=== PATIENT | male | born 1955 | race Caucasian/White ===

== ENCOUNTER 2016-11-11 10:18 | Inpatient (IN) ==
[2016-11-11] MEDS ORDERED: ONDANSETRON 4 MG/2 ML VIAL IV PRN (10:21)
[2016-11-11] MEDS ORDERED: PANTOPRAZOLE 40 MG VIAL IV SCH ×2 (10:30→21:00)
--- NOTE | 2016-11-11 10:56 | Pulmonology History & Physical ---
History of Present Illness Chief complaint: fatigue, abd pain, lightheaded, hypotension History of present illness: [facility] acting as scribe for Dr. Brett Hummel. Mr. Christianson is a 61 year old /White male seen today in the office for complaints of fatigue, weakness, intermittent hot flashes and sweating, abdominal pain, lightheadedness and rash on both arms and legs. He went to the emergency department on October 11, 2016 for these symptoms and was worried his blood counts were low he has history of severe anemia. H&H was stable but he was dehydrated at this time given IV hydration and felt ok d/c'd from ER. He called our office about 1 week ago c/o abdominal pain, weakness, fatigue, and sweats thought he had a stomach virus he was offered walk in appointment at this time but declined. Today presented for persistent symptoms with acute worsening of fatigue weakness and lightheadedness. Abdominal pain is intermittent worse with empty stomach and improves with eating. He has not vomited or had diarrhea but he is nauseated. BP in office noted to be 96/68 patient was feeling lightheaded, dizzy, and fatigued. He also has a rash to both arms and hands with open areas to the hands and dry plaque appearance to the hands. Red and pruritic worsens with heat. Due to the severity of his symptoms and the length of presence of his symptoms along with his PMHx decision was made to admit to inpatient for further evaluation and treatment. All other ROS noncontributory Allergies: None Home medications: See list Past medical history: [facility] 07/19/16 through 07/22/16 for left submandibular/submental cellulitis secondary to carious tooth. 03/27/16 through 03/12/16 under the care of Dr. Hummel. During that admission he was treated for acute on chronic anemia secondary to Dieulafoy's lesion which was injected with epinephrine and hemoclipped by Dr. Cao. [facility] through 12/04/14 under the care of Dr. Hummel. During that admission he was treated for nausea, vomiting, and dehydration. He also had acute on chronic anemia and required blood transfusion. [facility] 11/18/13 through for acute systolic CHF, an acute cardiomyopathy with an EF of 20%, ventricular tachycardia, GERD, and acute erosive gastritis and mild superficial gastritis. His history is also notable for cardiomyopathy and HTN. He is followed by Dr. Murcia. He also has chronic rhinitis. Past surgical history: He had Incision & drainage Left submandibular abscess and surgical extraction carious tooth #[address] Jason Garcia. He has had a previous c-scope by Dr. Cao. He has had a knee scope by Dr. Villarreal. He has had left shoulder surgery. He has an ICD. Family history: Non-contributory. Social history: The patient is . She is very supportive. 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 He denies alcohol or tobacco. Labs done in the office 11/11/16 Creatinine 1.48/BUN 22 CA 8.4 Potassium 4.5. WBC 6200 63.4% segs 18.1% lymphs 8.1% eosinophils H&H 12.7/38.7. EKG pending. CXR pending. Home Medications Medication Instructions Recorded Confirmed Type PARoxetine HCl [Paroxetine HCl] 40 mg PO DAILY 06/02/15 11/11/16 History Valsartan [Diovan] 80 mg PO DAILY 06/02/15 11/11/16 History Ferrous Sulfate Tab [Feosol 325 mg PO DAILY #30 tablet 04/01/16 11/11/16 Rx Original Tab] Carvedilol [Coreg] 6.25 mg PO DAILY 11/11/16 11/11/16 History Furosemide Tab [Lasix Tab] 40 mg PO DAILY 11/11/16 11/11/16 History Allergies Allergy/AdvReac Type Severity Reaction Status Date / Time No Known Allergies Allergy Verified 11/11/16 11:52 Medical,Surgical,& Family Hx - Medical History Cardio: History of: CHF, Hypertension, Pacemaker No history of: CAD, [place] Psychological: History of: Anxiety Disorders Neurology: No history of: Seizures Endocrine: No history of: Diabetes Mellitus (IDDM), Diabetes Mellitus (NIDDM) Rheumatology: History of;: Gout, Rheumatoid Arthritis Respiratory: No history of: Asthma, COPD, Pneumonia Renal: No history of: Renal Failure, Renal Problems Gastrointestinal: History of: GERD (past histroy) No history of: Gastrointestinal Bleed, Liver Problems Hematology: History of: Anemia (past history) - Surgical History Cardiac Surgeries: Sugical HX of: Cardiac Catheterization, Internal Defibrillator (PM/DF) Neurologic Surgeries: Patient denies: Neurologic Surgery Abdominal Surgeries: Surgical HX of: Colonoscopy, EGD Orthopedic Surgeries: Surgical HX of;: Implanted Devices (pacemaker), Orthopedic Surgery (left shoulder surgery 2011) - Family History Family History: Reports;: Family Diabetes (brother), Family Heart Disease ( father, mother), Family Hypertension (father), Family Stroke (mother) - Social History Smoking Status: Never smoker Results - Labs Lab Results: I have reviewed the past 24 hour labs Exam ([facility]) H&P - Constitutional Exam: Psych: Oriented x 3; a pleasant and cooperative patient who is acutely and chronically ill-appearing. HEENT: Pupils, irises, sclera, conjunctiva, and eyelids are normal. The face is symmetrical without rash. Neck: Symmetrical. Thyroid was not palpated. Lymphatics: No cervical or supraclavicular adenopathy Chest: Symmetrical without wheeze or congestion. CV: Regularly irregular with grade 1/6 FAUSTINO that does not radiate. Arterial: Carotids with a fair upstroke. There is no bruit. Upper extremity pulses are palpable. Lower extremity pulse are palpable. Venous: Exam of the neck, upper, and lower extremities is normal Abd: Generalized TTP to light palpation. No appreciable organomegaly, masses, or bruit; Bowel sounds are positive x 4; The aorta was not palpated. /Rectal: Deferred Extremities: No clubbing, cyanosis, edema, or obvious DVT Skin: See HEENT and Neck. No cancerous or infectious lesions of the remaining exposed, examined skin; Red dry irritated appearing rash to both upper extremities, dry silver/white appearing plaques on both hands with cracks through the lesions not infectious appearing. M/S: Age appropriate loss of the normal curvature of the cervical, thoracic, and lumbar spine Neurological: Cranial nerves are intact, Long tract motor function is intact; Sensory exam was not done; gait was not tested. The remainder of the exam was noncontributory. Impression: #1 Acute dehydration with elevation of creatinine #2 Anemia, chronic decreased of H&H #3 Fatigue present for greater than 4 weeks #4 Lightheadedness and dizziness #5 Hypotension, symptomatic #6 Rash on both arms #7 Cardiomyopathy, ICD in place, followed by Dr. Murcia #8 See past history. Plan #1 Admit to inpatient for further evaluation and treatment #2 Consult GI for evaluation of abdominal pain r/o penetrating ulcer, cholecystitis #3 IV Hydration, XR and labs #4 See orders.
[2016-11-11] MEDS: SUCRALFATE 1 GM TABLET PO SCH ×3 (11:29→21:24)
[2016-11-11] MEDS: DEXTROSE 5% NACL 0.45% 1,000 ML IV SCH ×2 (11:32→22:50)
[2016-11-11 12:44] LABS: Thyroid Stimulating Hormone 0.932 uIU/ml (0.358-3.74)
--- NOTE | 2016-11-11 13:26 | Gastrointestinal Consult Note ---
Assessment and Plan (1) Periumbilical pain Status: Acute Assessment and plan: I suspect the patient is having this particular pain from use of iron underlying constipation. Rule out some MiraLAX to see if this helps out with the sensation. He only goes to the bathroom once every other day in his current condition. Like to hold off on repeating colonoscopy for the present time. Current Visit: Yes (2) Acute posthemorrhagic anemia Status: Acute Assessment and plan: This patient's hematocrit approximately 1 month ago was noted to be 37%. We are checking his CBC now to see if this is dropped significantly in the interim. He has not noticed any bright red blood or black tarry bowel movements unlike previous admissions. His not taking any proton pump inhibitors at home, we'll check his CBC and likely schedule him for upper endoscopy tomorrow to see if any further bleeding from the GI tract can be identified. We will reexamine the site of the previous ulcer as well as the site of the previous Dieulafoy's lesion to see if these are oozing any blood. Risks and benefits of the procedure were discussed with the patient and include but are not limited to: Bleeding, infection, perforation, cardiac and pulmonary compromise. Current Visit: Yes (3) Epigastric abdominal pain Status: Acute Assessment and plan: This may be due to a combination of prior gastritis and ulcer disease the pain is certainly low-grade at this particular point. There may be some component of GI upset with the iron that he's been exposed to his well. We'll continue to watch his he is hydrated and continues to eat. Nothing by mouth after midnight for the above tests. Further recommendations post upper endoscopy repeat tomorrow. Current Visit: No (4) Erosive gastritis Status: Acute Assessment and plan: As mentioned above this may be secondary to erosive gastritis-- this is been found to be Helicobacter pylori negative past. We will continue monitoring for melena but the patient is being started on Protonix twice daily at this point. Current Visit: No History of Present Illness Chief complaint: prior history of anemia, epigastric and periumbilical pain, prior ulcer History of present illness: Mr. Christianson is a 61 year old male who is well-known to me from multiple admissions in the past. I'm being consulted due to underlying low epigastric/ periumbilical pain and a prior history of ulcers in the past. Unlike previous admissions patient states that he has not had any black stools or bright red blood per rectum, he states that he is on no Protonix 40 mg (last admission was written for twice a day). He has been taking iron on a routine basis and this gives him some gastric upset. He has noticed a hard stools but these tend to be green not black, be due to some some cramping. The patient has had some nausea without vomiting. The patient had blood work done while in the hospital as recently as 10/11/16 which time his hematocrit was 37.8 with a hemoglobin of 12.0. The patient's last upper endoscopy was done by me on 04/01/16 and was significant for a set of low-grade erosions noted in the antrum but also bleeding vessel/Dieulafoy's lesion noted at the duodenal C-sweep was very difficult to get to. This responded only after 10 mL injected epinephrine and hemoclips to staunch the bleeding. He has been on Protonix twice a day since that time. Overall he has done fairly well but has recently required tooth extraction for carious teeth/cellulitis. He does not take anything for the iron induce constipation, we will likely add some MiraLAX for this. Note this patient is previously undergone colonoscopy in the past. The patient has had prior colonoscopy but not capsule endoscopy. His hematocrit last admission was down to 28% a hematocrit for this visit is still pending. He denies NSAID use recently. The patient feels that he might have psoriasis on his hands bilaterally. Home Medications Medication Instructions Recorded Confirmed Type PARoxetine HCl [Paroxetine HCl] 40 mg PO DAILY 06/02/15 11/11/16 History Valsartan [Diovan] 80 mg PO DAILY 06/02/15 11/11/16 History Ferrous Sulfate Tab [Feosol 325 mg PO DAILY #30 tablet 04/01/16 11/11/16 Rx Original Tab] Carvedilol [Coreg] 6.25 mg PO DAILY 11/11/16 11/11/16 History Furosemide Tab [Lasix Tab] 40 mg PO DAILY 11/11/16 11/11/16 History Allergies Allergy/AdvReac Type Severity Reaction Status Date / Time No Known Allergies Allergy Verified 11/11/16 11:52 Medical,Surgical,& Family Hx - Medical History Cardio: History of: CHF, Hypertension, Pacemaker No history of: CAD, [place] Psychological: History of: Anxiety Disorders Neurology: No history of: Seizures Endocrine: No history of: Diabetes Mellitus (IDDM), Diabetes Mellitus (NIDDM) Rheumatology: History of;: Gout, Rheumatoid Arthritis Respiratory: No history of: Asthma, COPD, Pneumonia Renal: No history of: Renal Failure, Renal Problems Gastrointestinal: History of: GERD (past histroy) No history of: Gastrointestinal Bleed, Liver Problems Hematology: History of: Anemia (past history) - Surgical History Cardiac Surgeries: Sugical HX of: Cardiac Catheterization, Internal Defibrillator (PM/DF) Neurologic Surgeries: Patient denies: Neurologic Surgery Abdominal Surgeries: Surgical HX of: Colonoscopy, EGD Orthopedic Surgeries: Surgical HX of;: Implanted Devices (pacemaker), Orthopedic Surgery (left shoulder surgery 2011) - Family History Family History: Reports;: Family Diabetes (brother), Family Heart Disease ( father, mother), Family Hypertension (father), Family Stroke (mother) - Social History Smoking Status: Never smoker Type of Drug Use: None Review of systems: Constitutional: Denies fever, chills, and vomiting-- he is having moderate nausea Eyes: Denies dry eyes, and scleral icterus HENT: Denies headaches Cardiovascular: Denies acute chest pain and claudication Respiratory: Denies shortness of breath, wheezing, and difficulty breathing, denies cough Gastrointestinal: As noted in the HPI Genitourinary: Denies dysuria and hematuria Neurologic: Denies vision loss, and loss of sensation Musculoskeletal: Denies joint swelling, does have some joint stiffness, and muscular weakness Psychiatric: Denies depression and jean symptoms Heme-Lymph: Denies easy bruising, lymph node enlargement or tenderness, night sweats, excessive bleeding Allergies-immunologic: Denies pruritus and rhinorrhea Exam - Constitutional Exam: Constitutional: Well-developed, well-nourished, alert, and in no acute distress Head and face: Head: Normocephalic atraumatic-- the patient does have what appears to be folliculitis involving his forehead. Eyes: Conjunctiva without injection, no gross scleral icterus, pupils equal and round bilaterally Ears: Intact to conversation in both ears Nose: External appearance is normal, nares patent Mouth: Oral mucous membranes moist without erythema dentition noted to be without erosion Neck: Normal appearance, no masses or tenderness, trachea midline Thyroid: Gland midline and appropriate size for age Respiratory: Normal respiratory effort, clear to auscultation without wheezes, rhonchi or rales Cardiovascular: Regular rate and rhythm, normal S1, S2, the exam is without rubs, murmurs or gallops. Gastrointestinal: Nontender to palpation, normal active bowel sounds, tone normal without rigidity or guarding, no masses present, no hepatomegaly, no spleen tip felt. No rectal exam obtained. Lymphatic: Neck without adenopathy, axilla without lymphadenopathy present Musculoskeletal: Right and left lower extremities without evidence of edema Skin and subcutaneous tissue: No rashes or ulcerations noted, normal skin turgor, digits and nails without clubbing/cyanosis/deformities-- deep fissuring noted over the patient's knuckles bilaterally consistent with dry callouses which have fissured. Neurologic: The patient is grossly oriented to person place and time, cranial nerves show tongue movements are normal with normal tongue extrusion midline, light touch sensation is intact. Psychiatric: No hallucinations or delusions are present, does not appear depressed
--- NOTE | 2016-11-11 14:20 | EKG Report ---
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
--- NOTE | 2016-11-11 15:46 | XRay Report ---
XR chest 2V Indication: SOB Comparison: Chest x-ray dated October 11, 2016 Technique: Frontal and lateral views of the chest Findings: Continued mild cardiomegaly. Cardiac pacemaker apparatus again noted. Prominent hiatal hernia noted. Chronic changes of the lungs without focal consolidation, pleural effusion, or pneumothorax. Osseous and surrounding soft tissue structures appear grossly unchanged. Left clavicular hardware and pacemaker apparatus again noted. IMPRESSION: Continued mild cardiomegaly without gurinder pulmonary edema. Hiatal hernia. PROCEDURE INTERPRETED AT [facility] DEPARTMENT OF RADIOLOGY Final Report Signed by: Dr Denton Workman
--- NOTE | 2016-11-11 15:48 | XRay Report ---
XR KUB Indication: Generalized abdominal pain Comparison: Abdominal x-ray dated December 03, 2014 Technique: Frontal views of the abdomen Findings: Hiatal hernia. Nonspecific nonobstructive bowel gas pattern. Presumed pelvic phleboliths. Osseous and surrounding soft tissue structures appear grossly unchanged. IMPRESSION: No acute abnormality demonstrated. Hiatal hernia. PROCEDURE INTERPRETED AT [facility] DEPARTMENT OF RADIOLOGY Final Report Signed by: Dr Denton Workman
[2016-11-11 16:17] LABS: Apearance,Urine CLEAR (Clear); Bilirubin,Urine Negative (Negative); Blood, Urine Negative (Negative); Glucose,Urine (UA) Negative (Negative); Ketones,Urine Negative (Negative); Mucus,Urine Occasional /LPF (Occasional); Nitrite,Urine Negative (Negative); Protein,Urine Negative; RBC,Urine 1 /HPF (0-4); Urine Color Yellow (Yellow); Urine Specific Gravity 1.018 (1.001-1.035); Urine Urobilinogen < 2.0 EU/DL (0.2-1.0); WBC,Urine 1 /HPF (0-6)
--- NOTE | 2016-11-11 17:14 | Cardiology Consult Note ---
Assessment and Plan - Time spent with patient Time spent with patient: Greater than 30 minutes (1) New onset atrial fibrillation Status: Acute Assessment and plan: Await labs that are pending we have a TSH and free T4 that is it. The patient is to have upper endoscopy in the morning will initiate anticoagulation if there is no contraindication after this procedure. Continue his beta lynn for now his rate is controlled. Serial EKGs and placed on the lead pony rider Current Visit: Yes (2) Iron deficiency anemia Status: Chronic Current Visit: No Qualifiers: Iron deficiency anemia type: chronic blood loss Qualified Code(s): D50.0 - Iron deficiency anemia secondary to blood loss (chronic) (3) Nonischemic cardiomyopathy Status: Acute Assessment and plan: [place] [employer] class II with history of ventricular tachycardia status post ICD for secondary prophylaxis Current Visit: No (4) HTN (hypertension) Status: Chronic Current Visit: No Qualifiers: Hypertension type: essential hypertension Qualified Code(s): I10 - Essential (primary) hypertension History of Present Illness - Data of Consult Patient: new to practice Consult date: 11/11/16 Requesting Physician: Estefania Arora - Consult Narrative Reason for consult: Afib History of present illness: Mr. Christianson is a 61 [address] old male patient Dr[address] Anthony Murcia who has nonischemic dilated cardiomyopathy and status post single-chamber ICD is admitted with volume contraction and abdominal discomfort. We were ask to see because a routine ECG shows atrial fibrillation. The patient is unaware of any history of cardiac dysrhythmia. He is now admitted to the fifth floor I came to see the patient. He was in x-ray several hours later we were able to see him in his room. He denies any palpitations syncope or near-syncope chest pain orthopnea or lower extremity edema. He has [place] [employer] class II heart failure. Single-chamber ICD that is never fired. CC: Brett Hummel MD - Home Medications and Allergies Home Medications: Home Medications Medication Instructions Recorded Confirmed Type PARoxetine HCl [Paroxetine HCl] 40 mg PO DAILY 06/02/15 11/11/16 History Valsartan [Diovan] 80 mg PO DAILY 06/02/15 11/11/16 History Ferrous Sulfate Tab [Feosol 325 mg PO DAILY #30 tablet 04/01/16 11/11/16 Rx Original Tab] Carvedilol [Coreg] 6.25 mg PO DAILY 11/11/16 11/11/16 History Furosemide Tab [Lasix Tab] 40 mg PO DAILY 11/11/16 11/11/16 History Allergies/Adverse Reactions: Allergies Allergy/AdvReac Type Severity Reaction Status Date / Time No Known Allergies Allergy Verified 11/11/16 11:52 - Constitutional Constitutional: Absent: anorexia, chills - EENT Eyes: Absent: blurry vision, diplopia Nose, mouth and throat: Absent: dysphagia, epistaxis, neck pain, throat swelling , tongue swelling - Cardiovascular Cardiovascular: Present: lightheadedness. Absent: chest pain at rest, chest pain with activity, claudication, diaphoresis, dyspnea, dyspnea on exertion, edema, orthopnea, palpitations, PND - Respiratory Respiratory: Absent: cough, dyspnea on exertion - Gastrointestinal Gastrointestinal: Present: abdominal pain. Absent: bloating, constipation, dyspepsia, dysphagia, heartburn - Genitourinary Genitourinary: Absent: difficulty urinating, hematuria - Musculoskeletal Musculoskeletal: Absent: arthralgias, joint swelling - Neurological Neurological: Absent: abnormal gait, radicular pain - Psychiatric Psychiatric: Absent: depression, panic attacks - Endocrine Endocrine: Absent: cold intolerance, heat intolerance Medical,Surgical,& Family Hx - Medical History Cardio: History of: Cardiac Dysrhythmia (Vtach in past), CHF (systolic and diastolic heart failure [place] [employer] class II no), Hypertension, Cardiovascular Problems (ICD, single-chamber) No history of: CAD, [place] Psychological: History of: Anxiety Disorders Neurology: No history of: Seizures Endocrine: No history of: Diabetes Mellitus (IDDM), Diabetes Mellitus (NIDDM) Rheumatology: History of;: Gout, Rheumatoid Arthritis Respiratory: No history of: Asthma, COPD, Pneumonia Renal: No history of: Renal Failure, Renal Problems Gastrointestinal: History of: GERD (past histroy), GI Problems (history of UGI bleed) No history of: Gastrointestinal Bleed, Liver Problems Hematology: History of: Anemia (past history) - Surgical History Cardiac Surgeries: Sugical HX of: Cardiac Catheterization, Internal Defibrillator (ICD, single chamber for secondary prophylaxis) Neurologic Surgeries: Patient denies: Neurologic Surgery Abdominal Surgeries: Surgical HX of: Colonoscopy, EGD Orthopedic Surgeries: Surgical HX of;: Implanted Devices (pacemaker), Orthopedic Surgery (left shoulder surgery 2011) - Family History Family History: Reports;: Family Diabetes (brother), Family Heart Disease ( father, mother), Family Hypertension (father), Family Stroke (mother) - Social History Smoking Status: Never smoker Type of Drug Use: None Marital Status: Lives With:: Spouse Functional capacity: independent ambulation Physical Examination General: Present: Appears Well Neck: Present: Supple Neck Cardiac: Present: Reg Rate and Rhythm, S1/S2, S4 Lungs: Present: Normal Exam Neuro: Present: Cranial Nerve 2-12 Intact, Motor Function Intact Abdomen: Present: Soft, Active Bowel Sounds Skin: Present: Clear, Rash Gait: Present: Normal Gait Extremities: Absent: Edema Result/EKG - Labs Labs: Laboratory Results - last 24 hr 11/11/16 11/11/16 11/11/16 11:50 11:50 15:15 Magnesium 2.0 Free T4 1.16 TSH 3rd Generation 0.932 Urine Color Yellow Urine Appearance Clear Urine pH 5.0 Ur Specific Chavies 1.018 Urine Protein Negative Urine Glucose (UA) Negative Urine Ketones Negative Urine Blood Negative Urine Nitrate Negative Urine Bilirubin Negative Urine Urobilinogen < 2.0 H Urine Leukocytes Negative Urine RBC 1 Urine WBC 1 Urine Mucus Occasional Ur Culture Indicated? Not indicated - Impressions Impressions: Vital signs Temp 97.6 RR 17 BP 144/82 98% - EKG EKG results: interpreted by me EKG shows: atrial fibrillation
[2016-11-11 18:04] LABS: Basophils % 0.4 % (0.0-0.8); Eosinophils # 0.5 10*3/uL (0.0-0.87); Eosinophils % 10.7 % (0.00-10.9); Hematocrit 38.4 VOL% (42.0-52.0); Immature Granulocytes % 0.4 %; Immature Granulocytes Absolute 0.02 #; Lymphocytes # 1.1 10*3/uL (1.4-4.0); Lymphocytes % 23.8 % (21.2-54.2); Mean Corpuscular HGB Conc 31.3 GM/DL (32-36); Mean Corpuscular Hemoglobin 26 PG (27-34); Mean Corpuscular Volume 84.2 FL (87-102); Mean Platelet Volume 8.6 FL (9.6-12.0); Monocytes # 0.5 10*3/uL (0.11-0.8); Monocytes % 11.4 % (1.7-12.7); Neutrophils # 2.5 10*3/uL (1.4-7.4); Neutrophils % 53.3 % (38.7-73.9); Platelet Count 160 T/CUMM (130-400); Red Blood Count 4.56 MC/CUMM (3.8-5.5); Red Cell Distribution Width 13.9 % (9.3-17.3); White Blood Count 4.8 T/CUMM (4-12)
[2016-11-11 18:34] LABS: Calcium 8.4 MG/DL (8.5-10.1); Magnesium 2.2 MG/DL (1.8-2.4); Potassium 4.4 MMOL/L (3.5-5.1); Thyroid Stimulating Hormone 1.01 uIU/ml (0.358-3.74)
--- NOTE | 2016-11-11 19:34 | Pulmonology Progress Note ---
Pulmonary - PN: Subj Interval history: This patient is stable. His abdominal pain is better he has been found to have new onset of atrial fib. This probably explains a good bit of his weakness H&H is stable. Renal function looks good. The patient's for E scope tomorrow. Appreciate Dr. Thakur's cardiology consultation. Exam (Progress Note) - Constitutional Vitals: Period Temp Pulse Resp BP Sys/Martins Pulse Ox Last 24 Hr 97.6 F 84 17 144/82 98 Results - Labs CBC & BMP: 11/11/16 17:14 11/11/16 17:14
[2016-11-11] MEDS: POLYETHYLENE GLYCOL POWDER 17 GM PACK PO SCH (21:24)
[2016-11-12 06:00] LABS: Basophils % 0.4 % (0.0-0.8); Eosinophils # 0.5 10*3/uL (0.0-0.87); Eosinophils % 9.7 % (0.00-10.9); Hematocrit 37.6 VOL% (42.0-52.0); Hemoglobin 11.8 GM/DL (14.0-18.0); Immature Granulocytes % 0.2 %; Immature Granulocytes Absolute 0.01 #; Lymphocytes # 1.2 10*3/uL (1.4-4.0); Lymphocytes % 23.8 % (21.2-54.2); Mean Corpuscular HGB Conc 31.4 GM/DL (32-36); Mean Corpuscular Hemoglobin 27 PG (27-34); Mean Corpuscular Volume 84.5 FL (87-102); Mean Platelet Volume 8.8 FL (9.6-12.0); Monocytes # 0.5 10*3/uL (0.11-0.8); Monocytes % 9.5 % (1.7-12.7); Neutrophils # 2.8 10*3/uL (1.4-7.4); Neutrophils % 56.4 % (38.7-73.9); Platelet Count 166 T/CUMM (130-400); Red Blood Count 4.45 MC/CUMM (3.8-5.5); Red Cell Distribution Width 13.7 % (9.3-17.3)
[2016-11-12 06:37] LABS: Calcium 8.2 MG/DL (8.5-10.1); Magnesium 2.3 MG/DL (1.8-2.4); Osmolality,Calculated 295.4 MOS/KG (273-304); Potassium 5.4 MMOL/L (3.5-5.1)
[2016-11-12] MEDS ORDERED: PROPOFOL 200 MG/20 ML VIAL IV ONE (08:00)
[2016-11-12] MEDS ORDERED: LIDOCAINE 1% 5 ML VIAL ONE (08:00)
[2016-11-12] MEDS: SUCRALFATE 1 GM TABLET PO SCH ×4 (08:22→20:53)
--- NOTE | 2016-11-12 08:23 | Operative Note ---
Date of procedure: 11/12/16 Pre-op diagnosis: low epigastric/periumbilical pain, improved on Protonix, HX Post-op diagnosis: other (This patient is a very large hiatal hernia which could certainly be adding to food retention and his gastritis, he has moderately severe diffuse/linear gastritis and some duodenitis in addition, he would likely benefit from routine PPI use with Protonix.) Procedure: PROCEDURE: Esophagogastroduodenoscopy (EGD) REFERRING PHYSICIAN: Brett Hummel M.D. INDICATIONS: Low epigastric pain/periumbilical pain The prior H&P was reviewed and interrim changes are as noted: No change from GI consultation yesterday ENDOSCOPIST: Aleks Cao MD ENDOSCOPE: Olympus Video 100 System upper endoscope ASA CLASS: 3 EXAM: CV: regular rate and rhythm Respiratory: Clear without wheezes Abdominal: active bowel sounds MEDICATION: Per nursing anesthesia protocol, see their notes PROCEDURE: After discussion of the potential risks and benefits of upper endoscopy, the informed consent was obtained. The patient was then placed in the left lateral decubitus position where sedation was achieved as noted above. Esophageal intubation was performed without difficulty, and the endoscope was advanced through the esophagus, stomach and duodenum. A slow withdrawal was then performed with retroflexion in the stomach for careful inspection of the incisura angularis, fundus and cardia. The scope was then returned to a neutral position and withdrawn through the esophagus. The patient tolerated the procedure well and without complication. BIOPSIES: Not obtained PHOTOGRAPHS: Obtained FINDINGS: Hypopharynx and Larynx: Normal Esohagoscopy Upper and middle thirds: Normal Lower third normal Esophogastric junctions: Normal Gastroscopy: Cardia/Fundus: Very large hiatal hernia noted with a slight paraesophageal component, this was 10 cm in size with mild erythema Body: Diffuse moderate nonerosive gastritis Antrum and pylorus diffuse moderate nonerosive gastritis with a slight linear component Duodenoscopy: Bulb mild duodenitis Second and third portions: Mild duodenitis IMPRESSION: This patient is a very large hiatal hernia which could certainly be adding to food retention and his gastritis, he has moderately severe diffuse/ linear gastritis and some duodenitis in addition, he would likely benefit from routine PPI use with Protonix. RECOMMENDATIONS: Follow up for biopsy results in 1-2 weeks by phone [phone] Continue anti-gastroesophageal reflux measures (avoid carbonated and acidic beverages, avoid eating within 2 hours of bedtime, avoid tight fitting clothing , and elevate the front bed posts 6 inches prior to sleeping. This patient will likely need Protonix at least once daily going forward. The pain in his upper umbilical area may be referred from the stomach, but may also be intestinal pain associated with his colon. High fiber diet also suggested. Aleks Cao MD COPY TO: Brett Hummel M.D. Anesthesia: MAC Surgeon / Physician: Aleks Cao Estimated blood loss: minimal Specimens: none sent Condition: stable Disposition: post procedure unit (G.I. Suite) Results - Labs CBC & BMP: 11/12/16 04:42 11/12/16 04:42 Discharge Plan - Discharge Medications No Action Valsartan [Diovan] 80 mg PO DAILY PARoxetine HCl [Paroxetine HCl] 40 mg PO DAILY Ferrous Sulfate Tab [Feosol Original Tab] 325 mg PO DAILY #30 tablet Furosemide Tab [Lasix Tab] 40 mg PO DAILY Carvedilol [Coreg] 6.25 mg PO DAILY - Follow Up or Referral - Forms/Instructions
--- NOTE | 2016-11-12 08:25 | Anesthesia ---
Anesthesia Post OP - Post Ansesthetic Evaluation Patient seen in post op: Yes Resp: within normal limits CV: within normal limits Mental: within normal limits Temp: within normal limits Iahs-Ef-Cqzpupaxa: within normal limits Nausea and Vomiting: within normal limits Pain: within normal limits
--- NOTE | 2016-11-12 08:27 | Gastrointestinal Progress Note ---
Assessment and Plan (1) Periumbilical pain Status: Acute Assessment and plan: I suspect the patient is having this particular pain from use of iron with underlying constipation. Rule out some MiraLAX to see if this helps out with the sensation. He only goes to the bathroom once every other day in his current condition. No need for colonoscopy. Current Visit: Yes (2) Acute posthemorrhagic anemia Status: Acute Assessment and plan: Review of the patient's hematocrit demonstrates a very low-grade anemia, this really has not changed much from his baseline, despite the discontinuation of Protonix. I do note that the patient is been on iron supplementation and so ongoing losses are likely present, at least partially due to the gastritis in the stomach. Current Visit: Yes (3) Epigastric abdominal pain Status: Acute Assessment and plan: The upper endoscopy done today on 11/12/16 demonstrates moderate linear and on the linear gastritis but no gurinder erosions. No repeat biopsies were obtained. The patient feels better on Protonix and this will be continued as an outpatient daily. For my standpoint he can certainly be discharged. Current Visit: No (4) Erosive gastritis Status: Acute Assessment and plan: As mentioned above this may be secondary to erosive gastritis-- this is been found to be Helicobacter pylori negative past. We will continue monitoring for melena but the patient is being started on Protonix twice daily at this point. 11/12/16-- mild/moderate linear nonbleeding linear gastritis, possibly a source of some the patient's pain, biopsies were not re-obtained. Due to the size of his hiatal hernia he will need Protonix on a daily basis most likely. Hopefully with use of Protonix we can also curtail his iron use over time. I have left a prescription of Protonix in the front of his chart for use upon discharge. For my standpoint, he can be released at this time. Current Visit: No Gastroenterology - PN: Subj Interval history: Patient feels better on Protonix which was restarted. The epigastric/high periumbilical pain on the left has receded to a very large extent. Upper endoscopy today demonstrated the following: This patient is a very large hiatal hernia which could certainly be adding to food retention and his gastritis, he has moderately severe diffuse/linear gastritis and some duodenitis in addition. Exam (Progress Note) - Constitutional Vitals: Period Temp Pulse Resp BP Sys/Martins Pulse Ox Last 24 Hr 96.3 F-97.7 F 51-98 16-20 141-156/82-102 96-98 General appearance: no acute distress - Head Head exam: Present: normal inspection, normocephalic - Eye Eye exam: Present: EOMI - Respiratory Respiratory exam: Present: clear to auscultation bilaterally - Cardiovascular Cardiovascular exam: Present: regular rate and rhythm - GI/Abdominal GI/Abdominal exam: Present: normal bowel sounds, soft. Absent: distended, tenderness, rebound - Neurological Exam Neurological exam: Present: alert, oriented X3, CN II-XII intact. Absent: motor sensory deficit - Psychiatric Psychiatric exam: Present: normal affect, normal mood - Skin Skin exam: Present: normal color Results - Labs CBC & BMP: 11/12/16 04:42 11/12/16 04:42
--- NOTE | 2016-11-12 09:07 | Cardiology Progress Note ---
Assessment and Plan (1) New onset atrial fibrillation Status: Acute Assessment and plan: Initiate Eliquis continue carvedilol Current Visit: Yes (2) Iron deficiency anemia Status: Chronic Current Visit: No Qualifiers: Iron deficiency anemia type: chronic blood loss Qualified Code(s): D50.0 - Iron deficiency anemia secondary to blood loss (chronic) (3) Nonischemic cardiomyopathy Status: Acute Assessment and plan: [place] Heart Association class II with history of ventricular tachycardia status post ICD for secondary prophylaxis. Current Visit: No (4) HTN (hypertension) Status: Chronic Current Visit: No Qualifiers: Hypertension type: essential hypertension Qualified Code(s): I10 - Essential (primary) hypertension (5) Hyperkalemia Status: Acute Assessment and plan: potassium is 5.4. Recheck. The only potentially offensive agent that I see is Valsartan. Current Visit: Yes Cardiology - PN: Subj Interval history: Mr. Christianson was seen in the GI lab. He hadstigmata of bleeding on his EGD. His hemoglobin is mildly depressed. He remains in atrial fibrillation by examination and on the environmental monitoring specialist. I recommend that we initiate anticoagulation. This periumbilical pain could potentially be from cardioembolic source although has a normal bicarbonate does not appear to be a major event if it was cardioembolic. We are unsure of the duration of his atrial fibrillation. There are several options one is to continue anticoagulation and then a consider reinstitution of normal sinus rhythm 3-4 weeks or perform ANGELIKA and cardiovert. I think for now the best option is rate control and anticoagulation I will initiate Eliquis 5 mg p.o. twice daily. Exam (Progress Note) - Constitutional Vitals: Period Temp Pulse Resp BP Sys/Martins Pulse Ox Last 24 Hr 96.3 F-97.7 F 51-98 15-21 111-156/71-102 94-98 General appearance: normal weight - Head Head exam: Present: normal inspection - Eye Eye exam: Present: EOMI Pupils: Present: MONIQUE - ENT ENT exam: Present: normal exam - Neck Neck exam: Present: normal inspection - Respiratory Respiratory exam: Present: clear to auscultation bilaterally. Absent: rales - Cardiovascular Cardiovascular exam: Present: irregular rhythm (Right is about 70 when I was examining in the gym) - GI/Abdominal GI/Abdominal exam: Present: normal bowel sounds - Extremities Exam Extremities exam: Present: normal inspection - Back Exam Back exam: Present: normal inspection - Neurological Exam Neurological exam: Present: alert, oriented X3 - Psychiatric Psychiatric exam: Present: normal affect, normal mood - Skin Skin exam: Present: normal color, warm, dry Result/EKG - Labs CBC & BMP: 11/12/16 04:42 11/12/16 04:42 Labs: Laboratory Results - last 24 hr 11/11/16 11/11/16 11/11/16 11:50 11:50 15:15 WBC RBC Hgb Hct MCV MCH MCHC RDW Plt Count MPV Neut % (Auto) Lymph % (Auto) [place] % (Auto) Eos % (Auto) Baso % (Auto) Neut # (Auto) Lymph # (Auto) [place] # (Auto) Eos # (Auto) Baso # (Auto) Immature Gran % Nucleated RBC % Immature Gran # Nucleated RBCs # Sodium Potassium Chloride Carbon Dioxide Anion Gap BUN Creatinine GFR Calculation BUN/Creatinine Ratio Glucose Calculated Osmolality Calcium Magnesium 2.0 Free T4 1.16 TSH 3rd Generation 0.932 Urine Color Yellow Urine Appearance Clear Urine pH 5.0 Ur Specific [place] 1.018 Urine Protein Negative Urine Glucose (UA) Negative Urine Ketones Negative Urine Blood Negative Urine Nitrate Negative Urine Bilirubin Negative Urine Urobilinogen < 2.0 H Urine Leukocytes Negative Urine RBC 1 Urine WBC 1 Urine Mucus Occasional Ur Culture Indicated? Not indicated 11/11/16 11/11/16 11/12/16 17:14 17:14 04:42 WBC 4.8 5.0 RBC 4.56 4.45 Hgb 12.0 L 11.8 L Hct 38.4 L 37.6 L MCV 84.2 L 84.5 L MCH 26 L 27 MCHC 31.3 L 31.4 L RDW 13.9 13.7 Plt Count 160 166 MPV 8.6 L 8.8 L Neut % (Auto) 53.3 56.4 Lymph % (Auto) 23.8 23.8 [place] % (Auto) 11.4 9.5 Eos % (Auto) 10.7 9.7 Baso % (Auto) 0.4 0.4 Neut # (Auto) 2.5 2.8 Lymph # (Auto) 1.1 L 1.2 L [place] # (Auto) 0.5 0.5 Eos # (Auto) 0.5 0.5 Baso # (Auto) 0.0 0.0 Immature Gran % 0.4 0.2 Nucleated RBC % 0.0 0.0 Immature Gran # 0.02 0.01 Nucleated RBCs # 0.00 0.00 Sodium 143 Potassium 4.4 Chloride 108 H Carbon Dioxide 31 Anion Gap 8.4 BUN 19 H Creatinine 1.20 GFR Calculation 78 BUN/Creatinine Ratio 15.00 Glucose 128 H Calculated Osmolality 288.0 Calcium 8.4 L Magnesium 2.2 Free T4 TSH 3rd Generation 1.010 Urine Color Urine Appearance Urine pH Ur Specific [place] Urine Protein Urine Glucose (UA) Urine Ketones Urine Blood Urine Nitrate Urine Bilirubin Urine Urobilinogen Urine Leukocytes Urine RBC Urine WBC Urine Mucus Ur Culture Indicated? 11/12/16 04:42 WBC RBC Hgb Hct MCV MCH MCHC RDW Plt Count MPV Neut % (Auto) Lymph % (Auto) [place] % (Auto) Eos % (Auto) Baso % (Auto) Neut # (Auto) Lymph # (Auto) [place] # (Auto) Eos # (Auto) Baso # (Auto) Immature Gran % Nucleated RBC % Immature Gran # Nucleated RBCs # Sodium 147 H Potassium 5.4 H Chloride 111 H Carbon Dioxide 29 Anion Gap 12.4 BUN 17 Creatinine 1.40 H GFR Calculation 64 BUN/Creatinine Ratio 12.00 Glucose 131 H Calculated Osmolality 295.4 Calcium 8.2 L Magnesium 2.3 Free T4 TSH 3rd Generation Urine Color Urine Appearance Urine pH Ur Specific [place] Urine Protein Urine Glucose (UA) Urine Ketones Urine Blood Urine Nitrate Urine Bilirubin Urine Urobilinogen Urine Leukocytes Urine RBC Urine WBC Urine Mucus Ur Culture Indicated?
--- NOTE | 2016-11-12 09:18 | EKG Report ---
Stationary ECG Study [facility] Test Date: 11/12/2016 9:17:18 AM Pat Name: JOSE J PLASCENCIA Department: Room: 516 Gender: M Biology Specialist: FRANCISCO JAVIER : 1955 Requested by: Andriy Butler Order Number: [id number] Reading MD: FRANCK UPTON Intervals [place] Rate: 81 P: 999 TN: 0 QRS: 95 QRSD: 91 T: 78 QT: 343 QTc: 381 Interpretive Statements ATRIAL FIBRILLATION Electronically Signed On 11-12-16 19:13:50 BALLOON PILOT by FRANCK UPTON [email or web address]
[2016-11-12] MEDS: POLYETHYLENE GLYCOL POWDER 17 GM PACK PO SCH ×2 (10:30→20:53)
[2016-11-12] MEDS: PARoxetine 20 MG TABLET PO SCH (10:31)
[2016-11-12] MEDS: CARVEDILOL 6.25 MG TABLET PO SCH (10:31)
[2016-11-12] MEDS: FERROUS SULFATE 325 MG TABLET PO SCH (10:31)
[2016-11-12] MEDS: VALSARTAN 80 MG TABLET PO SCH (10:31)
[2016-11-12] MEDS: PANTOPRAZOLE 40 MG TABLET PO SCH ×2 (10:32→20:52)
--- NOTE | 2016-11-12 10:55 | Pulmonology Progress Note ---
Pulmonary - PN: Subj Interval history: Roque Trevizo, ANP-BC, GNP-BC, acting as scribe for Dr. Brett Hummel Mr. Christianson was seen today along with Lilo Shepherd RN. This is a 61 year old white male who was admitted 11/11/16 from [facility] with complaints of significant abdominal pain that was relieved with eating, weakness , anemia, and a general felling of illness. He is feeling better this morning by his report. He has been seen in GI consultation by Dr. Cao. EGD was done earlier this morning. This showed a very large hiatal hernia and moderately severe diffuse/ linear gastritis and some duodenitis. He recommended continuing PPI treatment. He also recommended a high fiber diet. EKG at admission showed new onset atrial fibrillation. He has been seen in cardiology consultation by Dr. Granados. His notes are reviewed and we appreciate his assistance. Of note, the patient was in [place] [facility] on 10/11/16 and an EKG then showed sinus bradycardia. Nonetheless, the patient has had sustained, rate controlled atrial fib since admission. Dr. Granados has started him on Eliquis. We will ask licensed social worker to assist Mr. Christianson with obtaining this medication as cost might be a prohibitive factor otherwise. He has an "itchy rash" of his hands, legs, arms, etc.... He has had this in the past and was successfully treated with steroids. We will not start steroids at this time, but will again try to refer him to dermatology as an outpatient. He had previously wished to wait on a referral. We suspect there are topical creams that can be used in place of oral or IM steroids. Medications have been reviewed. Labs have been reviewed. White count is 5,000 with a normal differential; H&H 11.8/37.6; PLT count 166,000; creatinine 1.40 (azotemia), BUN 17, NA+ 147 ( hypernatremia), K+ 5.4 (hyperkalemia), Mg+ 2.3 Exam (Progress Note) - Constitutional Vitals: Period Temp Pulse Resp BP Sys/Martins Pulse Ox Last 24 Hr 96.3 F-97.7 F 51-98 15-21 111-156/71-102 94-98 Exam: Chest is clear Heart irregularly irregular, no gallop Abd is nontender and nondistended; BS positive x 4 Ext with nothing to suggest acute DVT Psych oriented x 3 Neuro long tract motor function is intact Plan: Continue present treatment. Consult licensed social worker as above. Dermatology appointment as an outpatient. See orders. Results - Labs CBC & BMP: 11/12/16 04:42 11/12/16 04:42
[2016-11-12 11:01] LABS: Bilirubin,Total 0.5 MG/DL (0.2-1.0); Calcium 8.4 MG/DL (8.5-10.1); Osmolality,Calculated 291.7 MOS/KG (273-304); Potassium 5.4 MMOL/L (3.5-5.1)
[2016-11-12] MEDS: DEXTROSE 5% NACL 0.45% 1,000 ML IV SCH (14:49)
[2016-11-12] MEDS: APIXABAN 5 MG TABLET PO SCH (20:52)
[2016-11-13] MEDS: DEXTROSE 5% NACL 0.45% 1,000 ML IV SCH (03:22)
[2016-11-13 06:42] LABS: Basophils % 0.2 % (0.0-0.8); Eosinophils # 0.4 10*3/uL (0.0-0.87); Eosinophils % 9.1 % (0.00-10.9); Hematocrit 36.7 VOL% (42.0-52.0); Hemoglobin 11.2 GM/DL (14.0-18.0); Immature Granulocytes % 0.2 %; Immature Granulocytes Absolute 0.01 #; Lymphocytes # 0.8 10*3/uL (1.4-4.0); Lymphocytes % 19.1 % (21.2-54.2); Mean Corpuscular HGB Conc 30.5 GM/DL (32-36); Mean Corpuscular Hemoglobin 26 PG (27-34); Mean Corpuscular Volume 85.5 FL (87-102); Mean Platelet Volume 8.4 FL (9.6-12.0); Monocytes # 0.4 10*3/uL (0.11-0.8); Monocytes % 8.9 % (1.7-12.7); Neutrophils # 2.7 10*3/uL (1.4-7.4); Neutrophils % 62.5 % (38.7-73.9); Platelet Count 143 T/CUMM (130-400); Red Blood Count 4.29 MC/CUMM (3.8-5.5); Red Cell Distribution Width 13.9 % (9.3-17.3); White Blood Count 4.3 T/CUMM (4-12)
[2016-11-13 07:05] LABS: Calcium 8.4 MG/DL (8.5-10.1); Magnesium 2.1 MG/DL (1.8-2.4); Osmolality,Calculated 291.7 MOS/KG (273-304); Potassium 4.7 MMOL/L (3.5-5.1)
--- NOTE | 2016-11-13 07:19 | EKG Report ---
Stationary ECG Study [facility] Test Date: 11/13/2016 7:18:15 AM Pat Name: JOSE J PLASCENCIA Department: Room: 516 Gender: M Steel Die Printer: FRANCISCO JAVIER : 1955 Requested by: Andriy Butler Order Number: [id number] Reading MD: FRANCK UPTON Intervals [place] Rate: 87 P: 999 [place]: 0 QRS: 69 QRSD: 98 T: -21 QT: 362 QTc: 407 Interpretive Statements ATRIAL FIBRILLATION WITH PVCS Electronically Signed On 11-13-16 17:59:54 CLAIMS SERVICE REPRESENTATIVE by FRANCK UPTON [email or web address]
--- NOTE | 2016-11-13 08:32 | EKG Report ---
Stationary ECG Study [facility] Test Date: 11/13/2016 8:25:18 AM Pat Name: JOSE J PLASCENCIA Department: Room: 516 Gender: M Hockey Player: FRANCISCO JAVIER : 1955 Requested by: Brett Hummel Order Number: [id number] Reading MD: FRANCK UPTON Intervals [place] Rate: 92 P: 999 [place]: 0 QRS: 37 QRSD: 102 T: 56 QT: 360 QTc: 410 Interpretive Statements ATRIAL FIBRILLATION WITH VENTRICULAR PREMATURE COMPLEXES Electronically Signed On 11-13-16 18:04:24 TUG HAND by FRANCK UPTON [email or web address]
[2016-11-13 08:49] VITALS: BP 157/98
[2016-11-13 09:16] LABS: Calcium 8.5 MG/DL (8.5-10.1); Magnesium 2.1 MG/DL (1.8-2.4); Osmolality,Calculated 294.4 MOS/KG (273-304)
[2016-11-13] MEDS: FERROUS SULFATE 325 MG TABLET PO SCH (09:27)
[2016-11-13] MEDS: CARVEDILOL 6.25 MG TABLET PO SCH (09:27)
[2016-11-13] MEDS: PANTOPRAZOLE 40 MG TABLET PO SCH (09:27)
[2016-11-13] MEDS: APIXABAN 5 MG TABLET PO SCH (09:28)
[2016-11-13] MEDS: POLYETHYLENE GLYCOL POWDER 17 GM PACK PO SCH (09:28)
[2016-11-13] MEDS: VALSARTAN 80 MG TABLET PO SCH (09:28)
[2016-11-13] MEDS: SUCRALFATE 1 GM TABLET PO SCH ×2 (09:28→11:52)
[2016-11-13] MEDS: PARoxetine 20 MG TABLET PO SCH (09:36)
--- NOTE | 2016-11-13 09:38 | ECHO Report ---
Rakan Christianson Exam Date: 11/12/2016 12:43 Referring Physician: Technologist: Melvin DARLING Age: 61 Ht (in): Wt (lb): Gender: M Exam Location: [facility] Echo Indications: acute postemorrhagic anemia, periumbilical pain, CHF, HTN BP: / HR: Rhythm: Sinus Technical Quality: Fair IMPRESSIONS EF 50-55% Grade I/IV diastolic dysfunction (abnormal relaxation filling pattern), normal to mildly elevated filling pressures. Normal right ventricular size. Normal right atrial size. Moderately increased left atrial size. Morphologically normal mitral valve. Trace mitral valve regurgitation. Aortic valve sclerosis. Trace aortic valve regurgitation. Mild tricuspid valve regurgitation. PAP35- 40 mmHg. Morphologically normal pulmonic valve. No pericardial effusion. Normal size aortic root and proximal ascending aorta. MEASUREMENTS (Male / Female) Normal Values 2D ECHO LV Diastolic Diameter PLAX 4.4 cm 4.2 - 5.9 / 3.9 - 5.3 cm IVS Diastolic Thickness 1.5 cm 0.6 - 1.0 / 0.6 - 0.9 cm LVPW Diastolic Thickness 1.2 cm 0.6 - 1.0 / 0.6 - 0.9 cm RV Internal Dim ED PLAX 3.1 cm Aortic Root Diameter 2.9 cm LA Systolic Diameter LX 4.3 cm 3.0 - 4.0 / 2.7 - 3.8 cm DOPPLER TR Peak Velocity 235.0 cm/s TR Peak Gradient 22.1 mmHg FINDINGS Left Ventricle EF 50-55% Grade I/IV diastolic dysfunction (abnormal relaxation filling pattern), normal to mildly elevated filling pressures. Right Ventricle Normal right ventricular size. Right Atrium Normal right atrial size. Left Atrium Moderately increased left atrial size. Mitral Valve Morphologically normal mitral valve. Trace mitral valve regurgitation. Aortic Valve Aortic valve sclerosis. Trace aortic valve regurgitation. Tricuspid Valve Morphologically normal tricuspid valve. Mild tricuspid valve regurgitation. PAP35- 40 mmHg. Pulmonic Valve Morphologically normal pulmonic valve. Pericardium No pericardial effusion. Aorta Normal size aortic root and proximal ascending aorta. Soto Lawson (Electronically Signed) Final Date: 12 November 2016 17:27
[2016-11-13] MEDS ORDERED: CARVEDILOL 12.5 MG TABLET PO SCH (10:27)
--- NOTE | 2016-11-13 10:29 | Cardiology Progress Note ---
Assessment and Plan (1) New onset atrial fibrillation Status: Acute Assessment and plan: Initiate Eliquis continue carvedilol and increase dose as above. Follow-up with Dr. Murcia in 1-2 weeks Current Visit: Yes (2) Iron deficiency anemia Status: Chronic Current Visit: No Qualifiers: Iron deficiency anemia type: chronic blood loss Qualified Code(s): D50.0 - Iron deficiency anemia secondary to blood loss (chronic) (3) Nonischemic cardiomyopathy Status: Acute Assessment and plan: [place] Heart Association class II with history of ventricular tachycardia status post ICD for secondary prophylaxis. Current Visit: No (4) HTN (hypertension) Status: Chronic Current Visit: No Qualifiers: Hypertension type: essential hypertension Qualified Code(s): I10 - Essential (primary) hypertension Cardiology - PN: Subj Interval history: Mr. Christianson'edd heart rate has been relatively well controlled since he has been here however he has been in the bed predominantly. Today he got up to go to the restroom and clean up and his heart rate went up to the 160s. I interviewed the patient he states that this happens anytime he does a lot of strenuous exercise. I recommended that we increase his carvedilol from 6.25 mg p.o. twice daily to 12.5 mg p.o. twice daily. I will also arrange for him to have follow-up with Dr. Murcia in 1-2 weeks. If his heart rate persist with increases with exercise I recommend the addition of a non-dihydropyridine class calcium channel lynn. I discussed this with Mr. Christianson and his at the bedside. Exam (Progress Note) - Constitutional Vitals: Period Temp Pulse Resp BP Sys/Martins Pulse Ox Last 24 Hr 97.5 F-98.8 F 58-89 18-18 128-157/84-98 96-99 General appearance: normal weight - Eye Eye exam: Present: EOMI Pupils: Present: MONIQUE - Respiratory Respiratory exam: Present: clear to auscultation bilaterally - Cardiovascular Cardiovascular exam: Present: irregular rhythm (Right was about 90 when I listen to him I reviewed his strips his heart rate was up in the 150s below 160 earlier today) - GI/Abdominal GI/Abdominal exam: Present: normal bowel sounds - Extremities Exam Extremities exam: Present: normal inspection - Back Exam Back exam: Present: normal inspection - Neurological Exam Neurological exam: Present: alert, oriented X3 Result/EKG - Labs CBC & BMP: 11/13/16 06:29 11/13/16 08:17 Labs: Laboratory Results - last 24 hr 11/12/16 11/13/16 11/13/16 04:41 06:29 06:29 WBC 4.3 RBC 4.29 Hgb 11.2 L Hct 36.7 L MCV 85.5 L MCH 26 L MCHC 30.5 L RDW 13.9 Plt Count 143 MPV 8.4 L Neut % (Auto) 62.5 Lymph % (Auto) 19.1 L [place] % (Auto) 8.9 Eos % (Auto) 9.1 Baso % (Auto) 0.2 Neut # (Auto) 2.7 Lymph # (Auto) 0.8 L [place] # (Auto) 0.4 Eos # (Auto) 0.4 Baso # (Auto) 0.0 Immature Gran % 0.2 Nucleated RBC % 0.0 Immature Gran # 0.01 Nucleated RBCs # 0.00 Sodium 145 145 Potassium 5.4 H 4.7 Chloride 110 H 110 H Carbon Dioxide 30 27 Anion Gap 10.4 12.7 BUN 18 17 Creatinine 1.40 H 1.40 H GFR Calculation 64 65 BUN/Creatinine Ratio 12.00 12.00 Glucose 132 H 131 H Calculated Osmolality 291.7 291.7 Calcium 8.4 L 8.4 L Magnesium 2.1 Total Bilirubin 0.50 AST 16 ALT 17 Alkaline Phosphatase 74 Total Protein 6.0 L Albumin 3.0 L Globulin 3.0 Albumin/Globulin Ratio 1.0 L 11/13/16 08:17 WBC RBC Hgb Hct MCV MCH MCHC RDW Plt Count MPV Neut % (Auto) Lymph % (Auto) [place] % (Auto) Eos % (Auto) Baso % (Auto) Neut # (Auto) Lymph # (Auto) [place] # (Auto) Eos # (Auto) Baso # (Auto) Immature Gran % Nucleated RBC % Immature Gran # Nucleated RBCs # Sodium 147 H Potassium 5.0 Chloride 110 H Carbon Dioxide 28 Anion Gap 14.0 BUN 16 Creatinine 1.30 GFR Calculation 71 BUN/Creatinine Ratio 12.00 Glucose 137 H Calculated Osmolality 294.4 Calcium 8.5 Magnesium 2.1 Total Bilirubin AST ALT Alkaline Phosphatase Total Protein Albumin Globulin Albumin/Globulin Ratio - EKG EKG results: interpreted by me EKG shows: atrial fibrillation
--- NOTE | 2016-11-13 10:40 | Pulmonology Progress Note ---
Pulmonary - PN: Subj Interval history: Roque Trevizo, ANP-BC, GNP-BC, acting as scribe for Dr. Brett Hummel Mr. Christianson was seen today along with his . He states his breathing is stable. He denies any continued abdominal pain. He denies cardiac angina. We had a long discussion this morning with the patient and his regarding his diagnoses and treatments. He is tolerating the Eliquis fine. We have discussed the patient's care with Dr. Granados and coordinated our care. He is increasing Mr. Christianson's Coreg. He will schedule him an appointment with Dr. Murcia in 1-2 weeks. His anemia has remained stable. H&H today is 11.2/36.7. He denies any bleeding from any site. Medications have been reviewed. Labs have been reviewed. White count today is 4,300 with 62.5% segs; H&H 11.2/ 36.7 with decreased indices and normal RDW; PLT count 143,000; creatinine 1.30, BUN 16, NA+ 147, K+ 5.0; Mg+ 2.1 Exam (Progress Note) - Constitutional Vitals: Period Temp Pulse Resp BP Sys/Martins Pulse Ox Last 24 Hr 97.5 F-98.8 F 58-89 18-18 128-157/84-98 96-99 Exam: Chest is clear Heart irregularly irregular, no gallop Abd is nontender and nondistended; BS positive x 4 Ext with nothing to suggest acute DVT Psych oriented x 3 Neuro long tract motor function is intact Plan: The patient has now met maximum hospital benefit and will be discharged home. Please see the discharge note for more information. Results - Labs CBC & BMP: 11/13/16 06:29 11/13/16 08:17
--- NOTE | 2016-11-13 10:50 | Discharge Summary ---
Hospital Course - Hospital Course Hospital Course: Roque Trevizo, ANP-BC, GNP-BC, acting as scribe for Dr. Brett Hummel Mr. Christianson is a 61 year old white male who was admitted 11/11/16 from [facility] with complaints of significant abdominal pain that was relieved with eating, weakness , anemia, and a general felling of illness. He has been seen in GI consultation by Dr. Cao. EGD was done 11/12/16. This showed a very large hiatal hernia and moderately severe diffuse/linear gastritis and some duodenitis. He recommended continuing PPI treatment. He also recommended a high fiber diet. The patient's stomach complaints have resolved. EKG at admission showed new onset atrial fibrillation. He has been seen in cardiology consultation by Dr. Granados. Of note, the patient was in [place] [facility] on 10/11/16 and an EKG then showed sinus bradycardia. Nonetheless, the patient has had sustained, rate controlled atrial fib since admission. Dr. Granados started him on Eliquis. The morning of admission his rate had been increased. Dr. Granados has increased his Coreg to 12.5mg PO BID. He will follow-up with Dr. Murcia in 1-[address] Granados. He has had an "itchy rash" of his hands, legs, arms, etc.... He has had this in the past and was successfully treated with steroids. We did not start steroids during this admission secondary to his gastritis, but will again try to refer him to dermatology as an outpatient. He had previously wished to wait on a referral, but his states they will call and make him an appointment with Dr. Flores. If she has any problems doing this, she is to call our office and we will try to assist. We suspect there are topical creams that can be used in place of oral or IM steroids. He has a long, and well documented, history of anemia. He has a history of a Dieulafoy's lesion in 03/2016 which has injected with epinephrine and hemoclipped by Dr. Cao. His anemia has remained stable through this hospitalization. We discussed bleeding issues with the patient and his especially in the face of necessary anti-coagulation. We will arrange for him to have a CBC at [facility] every 2 weeks for approximately four checks. He can have PRN CBCs as well if any symptoms are noted. Blood cultures have grown no organisms. At discharge, white count is 4,300 with 62.5% segs, 19.1% lymphs, and 8.9% monos ; H&H 11.2/36.7 with decreased indices and normal RDW; PLT count 143,000; creatinine improved to 1.3, BUN 16, NA+ 147 (hypernatremia), K+ 5.0, Mg+ 2.1; LFTs WNL; TSH was normal at 1.010; Ca+ 8.5. albumin 3.0, total protein 6.0; urinalysis showed no evidence of infection. For more information regarding Mr. Christianson's past medical history, surgical history, family history, social history, admit labs, admit xrays, and admit exam , please see the admission note dated 11/11/16. Impression: #1 Acute dehydration with azotemia; resolved #2 Chronic anemia with a history of Dieulafoy's lesion in March 2016 #3 Fatigue present for greater than 4 weeks prior to admission resolved #4 Acute atrial fibrillation; this was a new diagnosis for this patient #5 Hypotension, symptomatic---resolved #6 Rash on both arms #7 Cardiomyopathy, ICD in place, followed by Dr. Murcia #8 Large hiatal hernia and moderately severe diffuse/linear gastritis and some duodenitis; seen on EGD 11/12/16 #9 See past history Plan: Eliquis 5mg PO BID, Coreg 12.5mg PO BID, Ferrous sulfate 325mg PO daily, Protonix 40mg PO daily, Paxil 40mg PO daily, Miralax 17 grams PO BID PRN, and Diovan 80mg PO daily. He will be scheduled to follow-up with Dr. Murcia is 1-2 weeks. His is to call and make an appointment with Dr. Flores regarding his rash. He will keep his scheduled appointment at [facility]. He could be seen sooner if needed. Discharge Plan - Discharge Data Disposition: Disch To Home/Self Care Condition at Discharge: Stable Discharge Diet: heart healthy - Discharge Medications New Carvedilol [Coreg] 12.5 mg PO DAILY #60 tablet Apixaban [Eliquis] 5 mg PO BID #60 tablet Pantoprazole Tab [Protonix Tab] 40 mg PO BID #30 tablet Polyethylene Glycol Powder [Miralax] 17 gm PO BID PRN powder PRN Reason: Constipation Continue Valsartan [Diovan] 80 mg PO DAILY PARoxetine HCl [Paroxetine HCl] 40 mg PO DAILY Ferrous Sulfate Tab [Feosol Original Tab] 325 mg PO DAILY #30 tablet Furosemide Tab [Lasix Tab] 40 mg PO DAILY Discontinued Carvedilol [Coreg] 6.25 mg PO DAILY - Follow Up or Referral - Forms/Instructions Exam - Constitutional Vitals: Period Temp Pulse Resp BP Sys/Martins Pulse Ox Last 24 Hr 97.5 F-98.8 F 58-89 18-18 128-157/84-98 96-99 Discharge Results Procedures and tests throughout hospitalization: Pending Orders 11/11/16 13:00 Blood Culture Routine Labs on day of discharge: Labs from last 24 hours 11/13/16 11/13/16 11/13/16 08:17 06:29 06:29 WBC 4.3 RBC 4.29 Hgb 11.2 L Hct 36.7 L MCV 85.5 L MCH 26 L MCHC 30.5 L RDW 13.9 Plt Count 143 MPV 8.4 L Neut % (Auto) 62.5 Lymph % (Auto) 19.1 L Crane % (Auto) 8.9 Eos % (Auto) 9.1 Baso % (Auto) 0.2 Neut # (Auto) 2.7 Lymph # (Auto) 0.8 L Crane # (Auto) 0.4 Eos # (Auto) 0.4 Baso # (Auto) 0.0 Immature Gran % 0.2 Nucleated RBC % 0.0 Immature Gran # 0.01 Nucleated RBCs # 0.00 Sodium 147 H 145 Potassium 5.0 4.7 Chloride 110 H 110 H Carbon Dioxide 28 27 Anion Gap 14.0 12.7 BUN 16 17 Creatinine 1.30 1.40 H GFR Calculation 71 65 BUN/Creatinine Ratio 12.00 12.00 Glucose 137 H 131 H Calculated Osmolality 294.4 291.7 Calcium 8.5 8.4 L Magnesium 2.1 2.1 Total Bilirubin AST ALT Alkaline Phosphatase Total Protein Albumin Globulin Albumin/Globulin Ratio 11/12/16 04:41 WBC RBC Hgb Hct MCV MCH MCHC RDW Plt Count MPV Neut % (Auto) Lymph % (Auto) Crane % (Auto) Eos % (Auto) Baso % (Auto) Neut # (Auto) Lymph # (Auto) Crane # (Auto) Eos # (Auto) Baso # (Auto) Immature Gran % Nucleated RBC % Immature Gran # Nucleated RBCs # Sodium 145 Potassium 5.4 H Chloride 110 H Carbon Dioxide 30 Anion Gap 10.4 BUN 18 Creatinine 1.40 H GFR Calculation 64 BUN/Creatinine Ratio 12.00 Glucose 132 H Calculated Osmolality 291.7 Calcium 8.4 L Magnesium Total Bilirubin 0.50 AST 16 ALT 17 Alkaline Phosphatase 74 Total Protein 6.0 L Albumin 3.0 L Globulin 3.0 Albumin/Globulin Ratio 1.0 L Preliminary micro results at discharge 11/11/16 13:00 Blood Culture - Preliminary Blood No growth at 1 day 11/11/16 12:29 Blood Culture - Preliminary Blood No growth at 1 day 11/11/16 11:50 Blood Culture - Preliminary Blood No growth at 1 day DS: Provider Date of admission: 11/11/16 10:39 Primary care physician: Brett Hummel MD Attending physician on admission: Brett Hummel MD Consults: 11/11/16 10:21 Consult to Physician [CONS] Routine Comment: Known to you, abd pain (better w/ food), Hx ulcer Consulting Provider: Aleks Cao Person Notified: mavis Date Notified: 11/11/16 Time Notified: 11:22 11/11/16 14:43 Consult to Physician [CONS] Routine Comment: known to you, new onset afib Consulting Provider: Juancho Murcia Person Notified: Blanca Date Notified: 11/11/16 Time Notified: 14:56 11/12/16 10:09 Consult to Case Mgmt/Social Srvs [CONS] Routine Reason for Case Mgmt/Social Srvs: Other Consult Comment: Pt assistance for Eliquis; won't be able to afford otherwise Discharging clinician: EFRA Costa
--- NOTE | 2016-11-13 11:33 | Gastrointestinal Progress Note ---
Assessment and Plan (1) Periumbilical pain Status: Acute Assessment and plan: I suspect the patient is having this particular pain from use of iron with underlying constipation. Rule out some MiraLAX to see if this helps out with the sensation. He only goes to the bathroom once every other day in his current condition. No need for colonoscopy. Current Visit: Yes (2) Acute posthemorrhagic anemia Status: Acute Assessment and plan: Review of the patient's hematocrit demonstrates a very low-grade anemia, this really has not changed much from his baseline, despite the discontinuation of Protonix. I do note that the patient is been on iron supplementation and so ongoing losses are likely present, at least partially due to the gastritis in the stomach. 11/13/16--agree with the use of Protonix on a daily basis. Patient is certainly stable for discharge in my opinion. He can follow up with me in the office as needed. Current Visit: Yes (3) Epigastric abdominal pain Status: Acute Assessment and plan: The upper endoscopy done on 11/12/16 demonstrates moderate diffuse and linear gastritis but no gurinder erosions. No repeat biopsies were obtained. The patient feels better on Protonix and this will be continued as an outpatient daily. For my standpoint he can certainly be discharged. 11/13/16--and changes from above, doing well with plans to discharge him Protonix daily for underlying gastritis Current Visit: No (4) Erosive gastritis Status: Acute Assessment and plan: As mentioned above this may be secondary to erosive gastritis-- this is been found to be Helicobacter pylori negative past. We will continue monitoring for melena but the patient is being started on Protonix twice daily at this point. 11/12/16-- mild/moderate linear nonbleeding linear gastritis, possibly a source of some the patient's pain, biopsies were not re-obtained. Due to the size of his hiatal hernia he will need Protonix on a daily basis most likely. Hopefully with use of Protonix we can also curtail his iron use over time. I have left a prescription of Protonix in the front of his chart for use upon discharge. For my standpoint, he can be released at this time. Current Visit: No Gastroenterology - PN: Subj Interval history: Patient doing fine from a GI standpoint, tolerating by mouth intake well, Protonix appears to be adequate for his acid suppression--he is not complaining of any GI related pain. Exam (Progress Note) - Constitutional Vitals: Period Temp Pulse Resp BP Sys/Martins Pulse Ox Last 24 Hr 97.5 F-98.8 F 58-89 18-18 128-157/84-98 96-99 - Head Head exam: Present: normocephalic, atraumatic - Eye Eye exam: Present: EOMI - Respiratory Respiratory exam: Present: clear to auscultation bilaterally. Absent: rhonchi, wheezes - Cardiovascular Cardiovascular exam: Present: regular rate and rhythm - GI/Abdominal GI/Abdominal exam: Present: normal bowel sounds, soft. Absent: distended, guarding, tenderness, rebound - Back Exam Back exam: Present: normal inspection - Neurological Exam Neurological exam: Present: alert, oriented X3, CN II-XII intact. Absent: motor sensory deficit - Psychiatric Psychiatric exam: Present: normal affect, normal mood - Skin Skin exam: Present: warm Results - Labs CBC & BMP: 11/13/16 06:29 11/13/16 08:17 Specialty Discharge - Follow Up or Referrals Follow up with: Juancho Murcia MD [Physician] - 11/18/16 10:00 am
== END 2016-11-13 12:31 | disposition home or self-care (01) | DRG 309 ==
LOC: N.5E 10:39
PROVIDERS: ADMIT Internal Medicine Pulmonary Disease; ATTEND Internal Medicine Pulmonary Disease

== ENCOUNTER 2018-03-01 10:02 | Observation (INO) ==
[2018-03-01] MEDS ORDERED: hydrALAZINE 20 MG/1 ML VIAL IV STA (10:19)
[2018-03-01] MEDS ORDERED: SODIUM CHLORIDE 0.9% 1,000 ML IV STA (10:19)
[2018-03-01] MEDS ORDERED: ALBUTEROL 2.5 MG/3 ML NEB RESP TX STA (10:21)
[2018-03-01 10:38] LABS: Basophils % 0.5 % (0.0-0.8); Eosinophils # 0.3 10*3/uL (0.0-0.87); Eosinophils % 7.7 % (0.00-10.9); Hematocrit 37.7 VOL% (42.0-52.0); Hemoglobin 12.9 GM/DL (14.0-18.0); Immature Granulocytes % 0.2 %; Immature Granulocytes Absolute 0.01 #; Lymphocytes # 0.8 10*3/uL (1.4-4.0); Lymphocytes % 18.1 % (21.2-54.2); Mean Corpuscular HGB Conc 34.2 GM/DL (32-36); Mean Corpuscular Hemoglobin 27 PG (27-34); Mean Corpuscular Volume 79.4 FL (87-102); Mean Platelet Volume 8.6 FL (9.6-12.0); Monocytes # 0.4 10*3/uL (0.11-0.8); Monocytes % 10.1 % (1.7-12.7); Neutrophils # 2.6 10*3/uL (1.4-7.4); Neutrophils % 63.4 % (38.7-73.9); Platelet Count 163 T/CUMM (130-400); Red Blood Count 4.75 MC/CUMM (3.8-5.5); Red Cell Distribution Width 13.6 % (9.3-17.3); White Blood Count 4.1 T/CUMM (4-12)
[2018-03-01 10:56] LABS: PT Patient Result 10.8 SECS; Partial Thromboplastin Time 30.2 SECS (0-40)
[2018-03-01 11:00] LABS: Albumin 3.6 G/DL (3.4-5.0); Bilirubin,Total 0.7 MG/DL (0.2-1.0); Calcium 8.7 MG/DL (8.5-10.1); Osmolality,Calculated 280.5 MOS/KG (273-304); Potassium 4.2 MMOL/L (3.5-5.1); Total Protein 7.2 G/DL (6.4-8.3)
[2018-03-01 11:33] LABS: Amorphous Crystals,Urine Occasional /HPF (Few); Apearance,Urine CLEAR (Clear); Bilirubin,Urine Negative (Negative); Blood, Urine Negative (Negative); Glucose,Urine (UA) Negative (Negative); Ketones,Urine Negative (Negative); Mucus,Urine Occasional /LPF (Occasional); Nitrite,Urine Negative (Negative); Protein,Urine Negative; RBC,Urine <1 /HPF (0-4); Squamous Epithelial Cell,Urine Occasional /HPF (0-10); Urine Color Yellow (Yellow); Urine Specific Gravity 1.013 (1.001-1.035); Urine Urobilinogen < 2.0 EU/DL (0.2-1.0); WBC,Urine <1 /HPF (0-6)
[2018-03-01 11:38] LABS: Barbiturates Screen,Urine Negative (Negative); Benzodiazepines Screen,Urine Negative (Negative); Cannabinoid Screen,Urine Negative (Negative); Opiate Screen,Urine Negative (Negative); Phencyclidine Screen,Urine Negative (Negative)
[2018-03-01] MEDS ORDERED: LACTULOSE 20 GM/30 ML UDCUP PO PRN (15:03)
[2018-03-01] MEDS ORDERED: ACETAMINOPHEN 325 MG TABLET PO PRN (15:03)
[2018-03-01] MEDS ORDERED: DOCUSATE SODIUM 100 MG CAPSULE PO PRN (15:03)
[2018-03-01] MEDS ORDERED: IBUPROFEN 200 MG TABLET PO PRN (16:27)
[2018-03-01] MEDS ORDERED: cloNIDine 0.1 MG TABLET PO PRN (16:28)
[2018-03-01] MEDS: CARVEDILOL 3.125 MG TABLET PO SCH (17:17)
[2018-03-01] MEDS: ONDANSETRON 4 MG/2 ML VIAL IV PRN (19:37)
[2018-03-01] MEDS: APIXABAN 5 MG TABLET PO SCH (20:37)
[2018-03-02] MEDS: ONDANSETRON 4 MG/2 ML VIAL IV PRN (00:06)
[2018-03-02 04:53] LABS: Basophils % 0.2 % (0.0-0.8); Eosinophils # 0.4 10*3/uL (0.0-0.87); Eosinophils % 8.1 % (0.00-10.9); Hematocrit 35.5 VOL% (42.0-52.0); Hemoglobin 12.2 GM/DL (14.0-18.0); Immature Granulocytes % 0.2 %; Immature Granulocytes Absolute 0.01 #; Lymphocytes # 0.9 10*3/uL (1.4-4.0); Lymphocytes % 20.1 % (21.2-54.2); Mean Corpuscular HGB Conc 34.4 GM/DL (32-36); Mean Corpuscular Hemoglobin 27 PG (27-34); Mean Corpuscular Volume 78.7 FL (87-102); Mean Platelet Volume 8.8 FL (9.6-12.0); Monocytes # 0.5 10*3/uL (0.11-0.8); Neutrophils # 2.6 10*3/uL (1.4-7.4); Neutrophils % 59.4 % (38.7-73.9); Platelet Count 145 T/CUMM (130-400); Red Blood Count 4.51 MC/CUMM (3.8-5.5); Red Cell Distribution Width 13.6 % (9.3-17.3); White Blood Count 4.3 T/CUMM (4-12)
[2018-03-02 05:30] LABS: Calcium 8.8 MG/DL (8.5-10.1); Osmolality,Calculated 280.4 MOS/KG (273-304); Potassium 3.8 MMOL/L (3.5-5.1); Risk Ratio 4.33; VLDL CHOLESTEROL 22.8 MG/DL
[2018-03-02] MEDS ORDERED: APIXABAN 5 MG TABLET PO SCH (09:00)
[2018-03-02] MEDS ORDERED: VALSARTAN 80 MG TABLET PO SCH ×2 (09:00)
[2018-03-02] MEDS ORDERED: PANTOPRAZOLE 40 MG TABLET PO SCH (09:00)
[2018-03-02] MEDS: APIXABAN 5 MG TABLET PO SCH (09:31)
[2018-03-02] MEDS: CARVEDILOL 3.125 MG TABLET PO SCH (09:31)
[2018-03-02 12:15] VITALS: BP 145/94
[2018-03-02] MEDS ORDERED: CARVEDILOL 6.25 MG TABLET PO SCH (21:00)
[2018-03-02] MEDS ORDERED: ROSUVASTATIN 10 MG TABLET PO SCH (21:00)
== END 2018-03-02 16:42 | disposition home or self-care (01) ==
LOC: N.EDINP 10:02 → N.ED 10:02 → N.TELEN 14:24
PROVIDERS: ADMIT Internal Medicine; ATTEND Internal Medicine

== ENCOUNTER 2018-11-29 09:14 | Inpatient (IN) ==
[2018-11-29] MEDS ORDERED: DILTIAZEM 25 MG/5 ML VIAL IV ONE (10:11)
[2018-11-29] MEDS ORDERED: DILTIAZEM 50 MG/10 ML VIAL IV STA (10:11)
[2018-11-29 10:31] LABS: Basophils % 0.3 % (0.0-0.8); Eosinophils # 0.4 10*3/uL (0.0-0.87); Eosinophils % 5.9 % (0.00-10.9); Hematocrit 39.7 VOL% (42.0-52.0); Hemoglobin 12.6 GM/DL (14.0-18.0); Immature Granulocytes % 0.4 %; Immature Granulocytes Absolute 0.03 #; Lymphocytes % 14.3 % (21.2-54.2); Mean Corpuscular HGB Conc 31.7 GM/DL (32-36); Mean Corpuscular Hemoglobin 26 PG (27-34); Mean Corpuscular Volume 81.7 FL (87-102); Mean Platelet Volume 8.5 FL (9.6-12.0); Monocytes # 0.7 10*3/uL (0.11-0.8); Neutrophils # 4.8 10*3/uL (1.4-7.4); Neutrophils % 69.1 % (38.7-73.9); Platelet Count 251 T/CUMM (130-400); Red Blood Count 4.86 MC/CUMM (3.8-5.5); Red Cell Distribution Width 13.4 % (9.3-17.3); White Blood Count 6.9 T/CUMM (4-12)
[2018-11-29 10:37] LABS: PT Patient Result 10.7 SECS
[2018-11-29 11:08] LABS: Albumin 3.6 G/DL (3.4-5.0); Bilirubin,Total 0.7 MG/DL (0.2-1.0); Calcium 9.3 MG/DL (8.5-10.1); Osmolality,Calculated 284.7 MOS/KG (273-304); Potassium 4.3 MMOL/L (3.5-5.1); Total Protein 7.9 G/DL (6.4-8.3)
[2018-11-29] MEDS ORDERED: guaiFENesin/DM ER 600-30 MG TABLET PO PRN (13:47)
[2018-11-29] MEDS ORDERED: GLUCAGON 1 MG VIAL IM PRN (13:47)
[2018-11-29] MEDS ORDERED: DOCUSATE SODIUM 100 MG CAPSULE PO PRN (13:47)
[2018-11-29] MEDS ORDERED: ONDANSETRON 4 MG/2 ML VIAL IV PRN (13:47)
[2018-11-29] MEDS ORDERED: diphenhydrAMINE CAP 25 MG CAPSULE PO PRN (13:47)
[2018-11-29] MEDS ORDERED: DEXTROSE 50% 25 GM/50 ML VIAL IV PRN (13:47)
[2018-11-29] MEDS ORDERED: ZALEPLON 5 MG CAPSULE PO PRN (13:47)
[2018-11-29] MEDS ORDERED: ACETAMINOPHEN 325 MG TABLET PO PRN (13:47)
[2018-11-29 14:30] LABS: Apearance,Urine CLOUDY (Clear); Bacteria,Urine Occasional /HPF (Few); Bilirubin,Urine Negative (Negative); Blood, Urine Negative (Negative); Glucose,Urine (UA) Negative (Negative); Hyaline Casts,Urine 20 /LPF (0-3); Ketones,Urine 5 mg/dL (Negative); Mucus,Urine Many /LPF (Occasional); Nitrite,Urine Negative (Negative); Protein,Urine 30 MG/DL; RBC,Urine <1 /HPF (0-4); Squamous Epithelial Cell,Urine Occasional /HPF (0-10); Urine Color Amber (Yellow); Urine Specific Gravity 1.025 (1.001-1.035); WBC,Urine 3 /HPF (0-6)
[2018-11-29] MEDS: dilTIAZem Drip 125 MG/125 ML PREMIX IV SCH ×2 (14:41→15:42)
[2018-11-29] MEDS: INSULIN LISPRO 100 UNIT/ML SUBCUT SCH ×2 (16:01→21:55)
[2018-11-29] MEDS: SODIUM CHLORIDE 0.9% 1,000 ML IV SCH (17:58)
[2018-11-29] MEDS: ASCORBIC ACID 500 MG TABLET PO SCH (21:54)
[2018-11-29] MEDS: CARVEDILOL 6.25 MG TABLET PO SCH (21:54)
[2018-11-30 05:22] LABS: Basophils % 0.2 % (0.0-0.8); Eosinophils # 0.5 10*3/uL (0.0-0.87); Eosinophils % 8.8 % (0.00-10.9); Hematocrit 33.8 VOL% (42.0-52.0); Immature Granulocytes % 0.5 %; Immature Granulocytes Absolute 0.03 #; Lymphocytes # 1.2 10*3/uL (1.4-4.0); Lymphocytes % 22.1 % (21.2-54.2); Mean Corpuscular HGB Conc 30.5 GM/DL (32-36); Mean Corpuscular Hemoglobin 25 PG (27-34); Mean Corpuscular Volume 82.4 FL (87-102); Mean Platelet Volume 8.8 FL (9.6-12.0); Monocytes # 0.7 10*3/uL (0.11-0.8); Monocytes % 11.9 % (1.7-12.7); Neutrophils # 3.1 10*3/uL (1.4-7.4); Neutrophils % 56.5 % (38.7-73.9); Red Cell Distribution Width 13.4 % (9.3-17.3); White Blood Count 5.6 T/CUMM (4-12)
[2018-11-30 05:28] LABS: Hemoglobin 10.3 GM/DL (14.0-18.0)
[2018-11-30 05:29] LABS: Platelet Count 200 T/CUMM (130-400)
[2018-11-30 05:40] LABS: Calcium 8.6 MG/DL (8.5-10.1); Osmolality,Calculated 289.3 MOS/KG (273-304); Potassium 4.2 MMOL/L (3.5-5.1)
[2018-11-30 05:51] LABS: Blood Urea Nitrogen 30 MG/DL (7-18); Calcium 8.5 MG/DL (8.5-10.1); Cholesterol 124 MG/DL (50-200); Glucose 128 MG/DL (74-106); HDL Cholesterol 33 MG/DL (40-60); Osmolality,Calculated 290.1 MOS/KG (273-304); Potassium 4.3 MMOL/L (3.5-5.1); Risk Ratio 3.76; Sodium 142 MMOL/L (136-145); Thyroid Stimulating Hormone < 0.005 uIU/ml (0.358-3.74); Triglycerides 115 MG/DL (2-150)
[2018-11-30] MEDS: SODIUM CHLORIDE 0.9% 1,000 ML IV SCH ×3 (07:39→18:17)
[2018-11-30 07:59] LABS: Free T4 (Free Thyroxine) 3.37 NG/DL (0.76-1.46)
[2018-11-30] MEDS ORDERED: LOSARTAN 50 MG TABLET PO SCH (09:00)
[2018-11-30] MEDS ORDERED: AMIODARONE 200 MG TABLET PO SCH (09:00)
[2018-11-30] MEDS ORDERED: APIXABAN 5 MG TABLET PO SCH (09:00)
[2018-11-30] MEDS: ASCORBIC ACID 500 MG TABLET PO SCH ×2 (09:00→20:39)
[2018-11-30] MEDS: CARVEDILOL 6.25 MG TABLET PO SCH ×2 (09:01→20:40)
[2018-11-30] MEDS: PARoxetine 20 MG TABLET PO SCH (09:01)
[2018-11-30] MEDS: INSULIN LISPRO 100 UNIT/ML SUBCUT SCH ×4 (09:02→21:58)
[2018-11-30] MEDS: dilTIAZem Drip 125 MG/125 ML PREMIX IV SCH (10:09)
[2018-11-30 11:10] LABS: % Iron Saturation 22.7 % (18-50); Ferritin 33.5 ng/ml (26-388)
[2018-11-30] MEDS: methIMAzole 10 MG TABLET PO SCH ×2 (16:02→20:40)
[2018-11-30] MEDS: APIXABAN 5 MG TABLET PO SCH (20:40)
[2018-12-01] MEDS: SODIUM CHLORIDE 0.9% 1,000 ML IV SCH ×2 (03:27→08:59)
[2018-12-01] MEDS: INSULIN LISPRO 100 UNIT/ML SUBCUT SCH ×5 (07:30→22:40)
[2018-12-01] MEDS: CARVEDILOL 6.25 MG TABLET PO SCH ×2 (08:55→22:39)
[2018-12-01] MEDS: methIMAzole 10 MG TABLET PO SCH ×3 (08:55→22:39)
[2018-12-01] MEDS: SOTALOL 80 MG TABLET PO SCH ×2 (08:55→22:39)
[2018-12-01] MEDS: PARoxetine 20 MG TABLET PO SCH (08:55)
[2018-12-01] MEDS: APIXABAN 5 MG TABLET PO SCH ×2 (08:55→22:39)
[2018-12-01] MEDS: ASCORBIC ACID 500 MG TABLET PO SCH ×2 (08:55→22:39)
[2018-12-02 04:57] LABS: Calcium 8.9 MG/DL (8.5-10.1); Osmolality,Calculated 287.1 MOS/KG (273-304); Potassium 4.2 MMOL/L (3.5-5.1)
[2018-12-02] MEDS: INSULIN LISPRO 100 UNIT/ML SUBCUT SCH (07:58)
[2018-12-02 08:03] VITALS: BP 149/98
[2018-12-02] MEDS ORDERED: LOSARTAN 50 MG TABLET PO SCH ×2 (08:15→09:00)
[2018-12-02] MEDS: CARVEDILOL 6.25 MG TABLET PO SCH (10:21)
[2018-12-02] MEDS: APIXABAN 5 MG TABLET PO SCH (10:21)
[2018-12-02] MEDS: SOTALOL 80 MG TABLET PO SCH (10:21)
[2018-12-02] MEDS: PARoxetine 20 MG TABLET PO SCH (10:21)
[2018-12-02] MEDS: methIMAzole 10 MG TABLET PO SCH (10:22)
[2018-12-02] MEDS: ASCORBIC ACID 500 MG TABLET PO SCH (10:22)
== END 2018-12-02 11:46 | disposition home or self-care (01) | DRG 309 ==
LOC: N.EDINP 09:14 → N.ED 09:14 → N.TELEN 15:19 → SUATTDRO 11-30 13:11
PROVIDERS: ADMIT Internal Medicine; ATTEND Hospitalist

== ENCOUNTER 2021-12-24 04:13 | Inpatient (IN) ==
[2021-12-24 05:03] LABS: Albumin 3.1 G/DL (3.4-5.0); Basophils % 0.4 % (0.0-0.8); Bilirubin,Total 0.6 MG/DL (0.20-1.00); Calcium 7.9 MG/DL (8.5-10.1); Eosinophils # 0.4 10*3/uL (0.0-0.87); Eosinophils % 7.8 % (0.00-10.9); Hemoglobin 7.8 GM/DL (14.0-18.0); Immature Granulocytes % 0.4 %; Immature Granulocytes Absolute 0.02 #; Lymphocytes # 0.8 10*3/uL (1.4-4.0); Lymphocytes % 14.2 % (21.2-54.2); Mean Corpuscular HGB Conc 27.6 GM/DL (32-36); Mean Corpuscular Volume 78.6 FL (87-102); Mean Platelet Volume 8.7 FL (9.6-12.0); Monocytes % 8.3 % (1.7-12.7); Neutrophils % 68.9 % (38.7-73.9); Osmolality,Calculated 289.4 MOS/KG (273-304); Platelet Count 188 T/CUMM (130-400); Potassium 4.5 MMOL/L (3.5-5.1); Red Cell Distribution Width 22.7 % (9.3-17.3); Total Protein 6.4 G/DL (6.4-8.2); White Blood Count 5.3 T/CUMM (4-12)
[2021-12-24 05:05] LABS: Hematocrit 28.3 VOL% (42.0-52.0)
[2021-12-24 05:09] LABS: Hypochromia 1+; Microcytosis 1+; Ovalocytes Slight; Platelet Estimate Adequate; Polychromasia Slight
[2021-12-24 05:31] LABS: Mucus,Urine Occasional /LPF (Occasional); RBC,Urine 4 /HPF (0-4)
[2021-12-24 05:32] LABS: Bilirubin,Urine Negative (Negative); Blood, Urine Negative (Negative); Glucose,Urine (UA) Negative (Negative); Ketones,Urine Negative (Negative); Nitrite,Urine Negative (Negative); Protein,Urine Negative (Negative); Urine Appearance Clear (Clear); Urine Color Yellow (Yellow); Urine Specific Gravity 1.025 (1.001-1.035); Urine Urobilinogen 0.2 eU/dL (<2.0); Urine pH 5.5 (4.5-8.0)
[2021-12-24] MEDS ORDERED: ONDANSETRON 4 MG/2 ML VIAL IV PRN (05:34)
[2021-12-24] MEDS ORDERED: DEXTROSE 10% 250 ML BAG IV PRN (05:34)
[2021-12-24] MEDS ORDERED: GLUCAGON 1 MG VIAL IM PRN (05:34)
[2021-12-24 05:40] LABS: Barbiturates Screen,Urine Negative (Negative); Benzodiazepines Screen,Urine Negative (Negative); Cannabinoid Screen,Urine Negative (Negative); Opiate Screen,Urine Negative (Negative); Phencyclidine Screen,Urine Negative (Negative)
[2021-12-24] MEDS ORDERED: LORazepam 2 MG/1 ML VIAL IV ONE (08:22)
[2021-12-24] MEDS: LACTATED RINGERS 1,000 ML IV SCH ×2 (08:30→21:27)
[2021-12-24] MEDS: SOTALOL 80 MG TABLET PO SCH (08:50)
[2021-12-24] MEDS: ASPIRIN EC 81 MG TABLET PO SCH (08:50)
[2021-12-24] MEDS: LOSARTAN 50 MG TABLET PO SCH (08:50)
[2021-12-24] MEDS: ENOXAPARIN 40 MG/0.4 ML SYRINGE SUBCUT SCH (08:55)
[2021-12-24] MEDS ORDERED: FERRIC GLUCONATE COMPLEX 125 MG in SODIUM CHLORIDE 0.9% 100 ML IV ONE (09:00)
[2021-12-24] MEDS ORDERED: carvediloL 3.125 MG TABLET PO SCH (09:00)
[2021-12-24] MEDS ORDERED: PANTOPRAZOLE 40 MG TABLET PO SCH (09:00)
[2021-12-24] MEDS ORDERED: hydrALAZINE 20 MG/1 ML VIAL IV PRN (12:34)
[2021-12-24] MEDS ORDERED: carvediloL 3.125 MG TABLET PO STA (13:02)
[2021-12-24] MEDS ORDERED: LORazepam 2 MG/1 ML VIAL ONE (14:28)
[2021-12-24] MEDS: carvediloL 6.25 MG TABLET PO SCH (21:27)
[2021-12-24] MEDS: PANTOPRAZOLE 40 MG VIAL IV SCH (21:27)
[2021-12-25] MEDS: LACTATED RINGERS 1,000 ML IV SCH ×3 (01:50→23:44)
[2021-12-25 05:48] LABS: Calcium 8.8 MG/DL (8.5-10.1); Osmolality,Calculated 288.3 MOS/KG (273-304)
[2021-12-25 05:53] LABS: Risk Ratio 3.59; VLDL Cholesterol 22.2 MG/DL
[2021-12-25 07:06] LABS: Basophils % 0.1 % (0.0-0.8); Eosinophils % 0.4 % (0.00-10.9); Hematocrit 27.9 VOL% (42.0-52.0); Immature Granulocytes % 0.7 %; Immature Granulocytes Absolute 0.05 #; Lymphocytes # 0.6 10*3/uL (1.4-4.0); Mean Corpuscular HGB Conc 28.3 GM/DL (32-36); Mean Corpuscular Volume 77.1 FL (87-102); Mean Platelet Volume 8.8 FL (9.6-12.0); Monocytes % 8.6 % (1.7-12.7); Neutrophils % 81.2 % (38.7-73.9); Platelet Count 194 T/CUMM (130-400); Red Blood Count 3.62 MC/CUMM (3.8-5.5); Red Cell Distribution Width 23.4 % (9.3-17.3)
[2021-12-25 07:07] LABS: Hemoglobin 7.9 GM/DL (14.0-18.0)
[2021-12-25 07:25] LABS: Hypochromia 1+; Microcytosis 2+; Platelet Estimate Adequate; Polychromasia Slight
[2021-12-25] MEDS: PANTOPRAZOLE 40 MG VIAL IV SCH ×2 (10:32→21:41)
[2021-12-25] MEDS: SOTALOL 80 MG TABLET PO SCH (13:20)
[2021-12-25] MEDS: ASPIRIN EC 81 MG TABLET PO SCH (13:21)
[2021-12-25] MEDS: LOSARTAN 50 MG TABLET PO SCH (13:22)
[2021-12-25] MEDS: carvediloL 6.25 MG TABLET PO SCH ×2 (13:22→21:41)
[2021-12-25] MEDS: ENOXAPARIN 40 MG/0.4 ML SYRINGE SUBCUT SCH (13:23)
[2021-12-25] MEDS: ACETAMINOPHEN 325 MG TABLET PO PRN ×2 (16:03→21:46)
[2021-12-25] MEDS: ATORVASTATIN 80 MG TABLET PO SCH (21:41)
[2021-12-26] MEDS: ACETAMINOPHEN 325 MG TABLET PO PRN ×2 (01:36→05:13)
[2021-12-26 06:23] LABS: Calcium 9.1 MG/DL (8.5-10.1); Osmolality,Calculated 285.3 MOS/KG (273-304); Potassium 3.9 MMOL/L (3.5-5.1)
[2021-12-26 07:04] LABS: Basophils % 0.3 % (0.0-0.8); Eosinophils # 0.1 10*3/uL (0.0-0.87); Eosinophils % 1.1 % (0.00-10.9); Hemoglobin 8.3 GM/DL (14.0-18.0); Immature Granulocytes % 0.5 %; Immature Granulocytes Absolute 0.03 #; Lymphocytes # 0.7 10*3/uL (1.4-4.0); Lymphocytes % 10.2 % (21.2-54.2); Mean Corpuscular HGB Conc 28.4 GM/DL (32-36); Mean Corpuscular Volume 77.9 FL (87-102); Mean Platelet Volume 8.9 FL (9.6-12.0); Monocytes % 7.8 % (1.7-12.7); NRBC # 0.02 10*3/uL; Neutrophils % 80.1 % (38.7-73.9); Platelet Count 186 T/CUMM (130-400); Red Blood Count 3.75 MC/CUMM (3.8-5.5); Red Cell Distribution Width 24.1 % (9.3-17.3); White Blood Count 6.4 T/CUMM (4-12)
[2021-12-26 07:10] LABS: Hematocrit 29.2 VOL% (42.0-52.0)
[2021-12-26] MEDS: ASPIRIN EC 81 MG TABLET PO SCH (08:36)
[2021-12-26] MEDS: LOSARTAN 50 MG TABLET PO SCH (08:36)
[2021-12-26] MEDS: ENOXAPARIN 40 MG/0.4 ML SYRINGE SUBCUT SCH (08:37)
[2021-12-26] MEDS: carvediloL 6.25 MG TABLET PO SCH ×2 (08:37→21:12)
[2021-12-26] MEDS: SOTALOL 80 MG TABLET PO SCH (08:37)
[2021-12-26] MEDS: PANTOPRAZOLE 40 MG VIAL IV SCH ×2 (08:41→21:13)
[2021-12-26] MEDS: hydrALAZINE 25 MG TABLET PO SCH ×3 (11:16→21:12)
[2021-12-26] MEDS: LACTATED RINGERS 1,000 ML IV SCH (13:30)
[2021-12-26] MEDS: CYCLOBENZAPRINE 10 MG TABLET PO PRN (15:31)
[2021-12-26] MEDS: ATORVASTATIN 80 MG TABLET PO SCH (21:12)
[2021-12-26] MEDS: APIXABAN 2.5 MG TABLET PO SCH (21:12)
[2021-12-27] MEDS: ACETAMINOPHEN 325 MG TABLET PO PRN (04:10)
[2021-12-27 06:58] LABS: Basophils % 0.4 % (0.0-0.8); Eosinophils # 0.2 10*3/uL (0.0-0.87); Eosinophils % 3.3 % (0.00-10.9); Hematocrit 28.1 VOL% (42.0-52.0); Immature Granulocytes % 0.4 %; Immature Granulocytes Absolute 0.02 #; Lymphocytes # 0.6 10*3/uL (1.4-4.0); Lymphocytes % 10.6 % (21.2-54.2); Mean Corpuscular HGB Conc 28.5 GM/DL (32-36); Mean Corpuscular Volume 78.1 FL (87-102); Mean Platelet Volume 8.9 FL (9.6-12.0); Monocytes % 9.4 % (1.7-12.7); Neutrophils % 75.9 % (38.7-73.9); Platelet Count 175 T/CUMM (130-400); White Blood Count 5.2 T/CUMM (4-12)
[2021-12-27 07:44] LABS: Hypochromia 1+; Microcytosis 2+; Ovalocytes Few
[2021-12-27 07:45] LABS: Platelet Estimate Adequate
[2021-12-27] MEDS: SOTALOL 80 MG TABLET PO SCH (09:05)
[2021-12-27] MEDS: CYCLOBENZAPRINE 10 MG TABLET PO PRN ×3 (09:06→21:34)
[2021-12-27] MEDS: carvediloL 6.25 MG TABLET PO SCH ×2 (09:06→21:34)
[2021-12-27] MEDS: LOSARTAN 50 MG TABLET PO SCH (09:06)
[2021-12-27] MEDS: ASPIRIN EC 81 MG TABLET PO SCH (09:06)
[2021-12-27] MEDS: APIXABAN 2.5 MG TABLET PO SCH ×2 (09:06→21:33)
[2021-12-27] MEDS: hydrALAZINE 25 MG TABLET PO SCH ×3 (09:06→21:31)
[2021-12-27] MEDS: PANTOPRAZOLE 40 MG VIAL IV SCH ×2 (09:11→22:31)
[2021-12-27] MEDS: LACTATED RINGERS 1,000 ML IV SCH ×2 (09:43→13:57)
[2021-12-27] MEDS: ATORVASTATIN 80 MG TABLET PO SCH (21:34)
[2021-12-28] MEDS: CYCLOBENZAPRINE 10 MG TABLET PO PRN ×2 (05:10→14:21)
[2021-12-28 06:28] LABS: Basophils % 0.2 % (0.0-0.8); Eosinophils # 0.2 10*3/uL (0.0-0.87); Eosinophils % 2.8 % (0.00-10.9); Hematocrit 31.5 VOL% (42.0-52.0); Immature Granulocytes % 0.5 %; Immature Granulocytes Absolute 0.03 #; Lymphocytes # 0.5 10*3/uL (1.4-4.0); Lymphocytes % 7.7 % (21.2-54.2); Mean Corpuscular HGB Conc 28.6 GM/DL (32-36); Mean Corpuscular Volume 77.2 FL (87-102); Mean Platelet Volume 8.6 FL (9.6-12.0); Monocytes % 9.6 % (1.7-12.7); Neutrophils % 79.2 % (38.7-73.9); Platelet Count 205 T/CUMM (130-400); Red Blood Count 4.08 MC/CUMM (3.8-5.5); Red Cell Distribution Width 24.6 % (9.3-17.3); White Blood Count 6.3 T/CUMM (4-12)
[2021-12-28 06:34] LABS: Hypochromia 2+; Polychromasia Slight
[2021-12-28 06:35] LABS: Anisocytosis 1+; Microcytosis 1+; Platelet Estimate Normal
[2021-12-28] MEDS: LACTATED RINGERS 1,000 ML IV SCH ×2 (07:46→13:53)
[2021-12-28] MEDS: ASPIRIN EC 81 MG TABLET PO SCH (08:46)
[2021-12-28] MEDS: APIXABAN 2.5 MG TABLET PO SCH (08:46)
[2021-12-28] MEDS: carvediloL 6.25 MG TABLET PO SCH (08:46)
[2021-12-28] MEDS: LOSARTAN 50 MG TABLET PO SCH (08:46)
[2021-12-28] MEDS: hydrALAZINE 25 MG TABLET PO SCH ×2 (08:46→14:22)
[2021-12-28] MEDS: SOTALOL 80 MG TABLET PO SCH (08:47)
[2021-12-28] MEDS: PANTOPRAZOLE 40 MG VIAL IV SCH (08:50)
[2021-12-28] MEDS ORDERED: BISACODYL 10 MG SUPP RECTAL ONE (09:35)
[2021-12-28] MEDS ORDERED: MAGNESIUM HYDROXIDE SUSP 30 ML UDCUP PO PRN (09:35)
[2021-12-28 16:00] VITALS: BP 166/86
== END 2021-12-28 16:00 | DRG 64 ==
LOC: SUATTDRO → EDBD → EDUNIT# → N.ED 04:13 → N.EDINP 04:13 → N.TELES 12:43 → SUATTDRO 12-25 08:38
PROVIDERS: ADMIT Internal Medicine; ATTEND Phlebology

== ENCOUNTER 2022-09-01 13:24 | Inpatient (IN) ==
[2022-09-01] MEDS ORDERED: levETIRAcetam 500 MG/5 ML VIAL IV STA (14:01)
[2022-09-01 14:05] LABS: Basophils % 0.2 % (0.0-0.8); Eosinophils # 0.1 10*3/uL (0.0-0.87); Eosinophils % 2.5 % (0.00-10.9); Hemoglobin 9.2 GM/DL (14.0-18.0); Immature Granulocytes % 0.2 %; Immature Granulocytes Absolute 0.01 #; Lymphocytes # 0.6 10*3/uL (1.4-4.0); Lymphocytes % 14.6 % (21.2-54.2); Mean Corpuscular HGB Conc 29.7 GM/DL (32-36); Mean Corpuscular Volume 79.7 FL (87-102); Mean Platelet Volume 8.7 FL (9.6-12.0); Monocytes # 0.3 10*3/uL (0.11-0.8); Monocytes % 7.3 % (1.7-12.7); Neutrophils % 75.2 % (38.7-73.9); Platelet Count 194 T/CUMM (130-400); Red Blood Count 3.89 MC/CUMM (3.8-5.5); Red Cell Distribution Width 14.7 % (9.3-17.3); White Blood Count 4.4 T/CUMM (4-12)
[2022-09-01] MEDS ORDERED: LORazepam 2 MG/1 ML VIAL ONE (14:13)
[2022-09-01] MEDS ORDERED: LORazepam 2 MG/1 ML VIAL IV STA (14:17)
[2022-09-01 14:21] LABS: Albumin 3.5 G/DL (3.4-5.0); Bilirubin,Total 0.7 MG/DL (0.20-1.00); Calcium 8.9 MG/DL (8.5-10.1); Osmolality,Calculated 283.5 MOS/KG (273-304); Potassium 4.5 MMOL/L (3.5-5.1)
[2022-09-01] MEDS ORDERED: HYDROmorphone 1 MG/1 ML SYRINGE IV STA (16:48)
[2022-09-01] MEDS ORDERED: ONDANSETRON 4 MG/2 ML VIAL IV STA (16:48)
[2022-09-01] MEDS ORDERED: ONDANSETRON 4 MG/2 ML VIAL ONE (16:49)
[2022-09-01] MEDS ORDERED: hydrALAZINE 20 MG/1 ML VIAL IV PRN (17:16)
[2022-09-01] MEDS ORDERED: ONDANSETRON 4 MG/2 ML VIAL IV PRN (17:16)
[2022-09-01] MEDS ORDERED: ALBUTEROL/IPRATROPIUM 3 ML NEB RESP TX PRN (17:16)
[2022-09-01] MEDS ORDERED: LORazepam 2 MG/1 ML VIAL IV PRN (17:22)
[2022-09-01] MEDS ORDERED: INFLUENZA VIRUS VACCINE 0.5 ML SYRINGE IM ONE (18:22)
[2022-09-02 05:37] LABS: Basophils % 0.4 % (0.0-0.8); Eosinophils # 0.1 10*3/uL (0.0-0.87); Eosinophils % 2.8 % (0.00-10.9); Hematocrit 29.2 VOL% (42.0-52.0); Hemoglobin 8.6 GM/DL (14.0-18.0); Immature Granulocytes % 0.2 %; Immature Granulocytes Absolute 0.01 #; Lymphocytes # 1.1 10*3/uL (1.4-4.0); Lymphocytes % 24.5 % (21.2-54.2); Mean Corpuscular HGB Conc 29.5 GM/DL (32-36); Mean Corpuscular Volume 79.1 FL (87-102); Mean Platelet Volume 8.4 FL (9.6-12.0); Monocytes # 0.5 10*3/uL (0.11-0.8); Neutrophils % 61.1 % (38.7-73.9); Platelet Count 157 T/CUMM (130-400); Red Blood Count 3.69 MC/CUMM (3.8-5.5); Red Cell Distribution Width 14.8 % (9.3-17.3); White Blood Count 4.7 T/CUMM (4-12)
[2022-09-02 06:02] LABS: Platelet Estimate Adequate
[2022-09-02 06:04] LABS: Calcium 9.2 MG/DL (8.5-10.1); Potassium 3.9 MMOL/L (3.5-5.1); Risk Ratio 2.19; Thyroid Stimulating Hormone 0.722 uIU/ml (0.358-3.74); VLDL Cholesterol 15.2 MG/DL
[2022-09-02] MEDS: PANTOPRAZOLE 40 MG TABLET PO SCH (08:06)
[2022-09-02 08:27] LABS: Bacteria,Urine Occasional /HPF (Few); RBC,Urine 28 /HPF (0-4)
[2022-09-02 08:28] LABS: Bilirubin,Urine Negative (Negative); Blood, Urine Small mg/dL (Negative); Glucose,Urine (UA) Negative (Negative); Ketones,Urine Negative (Negative); Nitrite,Urine Negative (Negative); Protein,Urine Negative (Negative); Urine Appearance Cloudy (Clear); Urine Color Yellow (Yellow); Urine Specific Gravity > 1.030 (1.001-1.035); Urine Urobilinogen 0.2 eU/dL (<2.0); Urine pH 5.5 (4.5-8.0)
[2022-09-02 08:34] LABS: Barbiturates Screen,Urine Negative (Negative); Benzodiazepines Screen,Urine Positive (Negative); Cannabinoid Screen,Urine Negative (Negative); Opiate Screen,Urine Positive (Negative); Phencyclidine Screen,Urine Negative (Negative)
[2022-09-02] MEDS: ACETAMINOPHEN 325 MG TABLET PO PRN (17:53)
[2022-09-03 05:16] LABS: Basophils % 0.3 % (0.0-0.8); Eosinophils # 0.2 10*3/uL (0.0-0.87); Eosinophils % 4.6 % (0.00-10.9); Hematocrit 30.6 VOL% (42.0-52.0); Hemoglobin 9.1 GM/DL (14.0-18.0); Immature Granulocytes % 0.3 %; Immature Granulocytes Absolute 0.01 #; Lymphocytes % 29.1 % (21.2-54.2); Mean Corpuscular HGB Conc 29.7 GM/DL (32-36); Mean Corpuscular Volume 79.1 FL (87-102); Mean Platelet Volume 8.9 FL (9.6-12.0); Monocytes # 0.3 10*3/uL (0.11-0.8); Monocytes % 9.8 % (1.7-12.7); Neutrophils % 55.9 % (38.7-73.9); Platelet Count 167 T/CUMM (130-400); Red Blood Count 3.87 MC/CUMM (3.8-5.5); Red Cell Distribution Width 14.7 % (9.3-17.3); White Blood Count 3.3 T/CUMM (4-12)
[2022-09-03 05:41] LABS: Calcium 8.9 MG/DL (8.5-10.1); Potassium 3.9 MMOL/L (3.5-5.1)
[2022-09-03] MEDS: PANTOPRAZOLE 40 MG TABLET PO SCH (09:12)
[2022-09-03] MEDS: ACETAMINOPHEN 325 MG TABLET PO PRN ×2 (09:12→17:26)
[2022-09-03] MEDS: carvediloL 3.125 MG TABLET PO SCH (16:23)
[2022-09-03] MEDS: APIXABAN 2.5 MG TABLET PO SCH (20:27)
[2022-09-03] MEDS: levETIRAcetam 500 MG TABLET PO SCH (20:27)
[2022-09-03] MEDS ORDERED: ATORVASTATIN 80 MG TABLET PO SCH (21:00)
[2022-09-04] MEDS: levETIRAcetam 500 MG TABLET PO SCH (08:35)
[2022-09-04] MEDS: carvediloL 3.125 MG TABLET PO SCH (08:35)
[2022-09-04] MEDS: APIXABAN 2.5 MG TABLET PO SCH (08:35)
[2022-09-04] MEDS ORDERED: ASPIRIN EC 81 MG TABLET PO SCH (09:00)
[2022-09-04] MEDS ORDERED: LOSARTAN 50 MG TABLET PO SCH (09:00)
[2022-09-04] MEDS ORDERED: PANTOPRAZOLE 40 MG TABLET PO SCH (09:00)
[2022-09-04 11:33] VITALS: BP 144/78
== END 2022-09-04 14:35 | DRG 101 ==
LOC: N.ED 13:24 → N.EDINP 17:09 → SUATTDRO 17:09 → N.3E 17:42
PROVIDERS: ADMIT Internal Medicine Geriatric Medicine; ATTEND Internal Medicine